=== PATIENT | female | born 1960 | race Caucasian/White ===

== ENCOUNTER 2016-12-18 20:12 | Inpatient (IN) | payer MEDICAID, OTHER ==
[~2016-12-18] VITALS: Ht 152.4 cm; Wt 93.0 kg
[~2016-12-18 20:12] MED LIST: HYDR-3672 PO; NIFE30TA43 PO
[2016-12-18 20:17] VITALS: Ht 152.4 cm; Wt 93.0 kg
[2016-12-18] MEDS ORDERED: LISI1TAB8 PO (22:07)
[2016-12-18] MEDS ORDERED: hydrALAzine 20 MG INJ IV ONE (22:30)
[2016-12-18 22:33] LABS: ADD SCAN DIFF NO
[2016-12-18 22:37] LABS: BASOPHILS % 0.5 % (0.0-2.0); EOSINOPHILS # 0.1 10^3/ul (0.0-0.5); EOSINOPHILS % 1.6 % (0.0-7.0); HEMATOCRIT 28.2 % (37.0-47.0); HEMOGLOBIN 10.3 g/dl (12.0-16.0); LYMPHOCYTES # 1.4 10^3/ul (0.8-2.9); LYMPHOCYTES % 16.5 % (15.0-51.0); MEAN CORPUSCULAR HGB CONC 36.5 g/dl (32.0-37.0); MEAN CORPUSCULAR VOLUME 82.2 fl (82.0-101.0); MEAN PLATELET VOLUME 9.1 fl (7.4-10.4); MONOCYTE # 0.7 10^3/ul (0.3-0.9); MONOCYTES % 8.5 % (0.0-11.0); NEUTROPHIL # 5.9 10^3/ul (1.6-7.5); NEUTROPHILS % 72.5 % (39.0-77.0); PLATELET COUNT 447 10^3/UL (140-415); RED BLOOD COUNT 3.43 10^6/ul (4.20-5.40); RED CELL DISTRIBUTION WIDTH 11.2 % (11.5-14.5); WHITE BLOOD COUNT 8.2 10^3/ul (4.8-10.8)
[2016-12-18 22:42] LABS: ADD UMIC YES; URINE BILIRUBIN (Dip) NEGATIVE (NEGATIVE); URINE BLOOD (Dip) TRACE (NEGATIVE); URINE COLOR LT. YELLOW (YELLOW); URINE GLUCOSE (Dip) NEGATIVE (NEGATIVE); URINE KETONES (Dip) NEGATIVE (NEGATIVE); URINE LEUKOCYTE ESTERASE (Dip) TRACE (NEGATIVE); URINE NITRITE (Dip) NEGATIVE (NEGATIVE); URINE TOTAL PROTEIN (Dip) 2+ (NEGATIVE); URINE UROBILINOGEN (Dip) 0.2 E.U./dL (0.1-1.0)
[2016-12-18 22:49] LABS: ALBUMIN 4.7 g/dl (3.3-4.9); INR 0.82; PROTIME 11.3 Sec (12.2-14.2); PT RATIO 0.9
[2016-12-18 22:50] LABS: POTASSIUM 3.8 mmol/L (3.5-5.1)
[2016-12-18 22:52] LABS: ALBUMIN/GLOBULIN RATIO 1.17; BILIRUBIN,INDIRECT 0.2 mg/dl (0-1.1); BILIRUBIN,TOTAL 0.2 mg/dl (0.2-1.3); CREATININE 1.43 mg/dl (0.44-1.00); TOTAL PROTEIN 8.7 g/dl (6.1-8.1)
[2016-12-18 22:53] LABS: CALCIUM 9.1 mg/dl (8.4-10.2)
[2016-12-18 22:58] LABS: SQUAMOUS EPITHELIAL CELL,UR FEW; URINE RBCS 0-2 /HPF (0)
[2016-12-18 23:00] LABS: CK-MB 2.73 ng/ml (0.0-2.4)
--- NOTE | 2016-12-18 23:02 | RADRPT ---
PROCEDURE: XR Chest. CLINICAL INDICATION: Chest pain. TECHNIQUE: AP view of the chest was obtained. COMPARISON: 03/04/2016, 02/06/2015 FINDINGS: The cardiomediastinal silhouette is within normal limits. The lungs are clear. No signs of pleural f luid or pneumothorax are seen. The osseous structures and soft tissues are unremarkable. IMPRESSION: 1. No evidence for active cardiopulmonary disease. RPTAT: HGAS .Hung Willis MD, MD Date Time Electronically viewed and signed by .Hung Willis MD, MD on 12/18/2016 23:02 .S/
[2016-12-18 23:04] LABS: TROPONIN-I 0.017 ng/ml (0.00-0.12)
[2016-12-18] MEDS ORDERED: ASPIRIN 81 MG TAB PO ONE (23:30)
[2016-12-18] MEDS ORDERED: SOD CHLORIDE 0.9% 1,000 ML IV ONE (23:30)
[2016-12-18] MEDS ORDERED: morphine 4 MG/ML VIAL IV ONE (23:33)
[2016-12-19] VITALS (20 sets, daily range): BP systolic 128–202; BP diastolic 61–93; PULSE 67–108; RESP 13–23; TEMP 98.7
[2016-12-19] MEDS ORDERED: ONDANSETRON 4 MG INJ IV PRN (03:30)
[2016-12-19] MEDS ORDERED: ALBUTEROL/IPRATROPIUM (NEB) 3 ML AMP NEB PRN (03:30)
--- NOTE | 2016-12-19 03:46 | ERA ---
ER Documentation Chief Complaint Date/Time DATE: 12/19/16 TIME: 03:35 Chief Complaint hypertension HPI This is a 56-year-old female who was initially checked for hypertension patient says her blood sugars is running high over the past 2-3 days. She says that she is compliant with her blood pressure medication. She denies any fevers chills nausea vomiting chest pain. Denies any other current issues. ROS All systems reviewed and are negative except as per history of present illness. Medications Home Meds Reported Medications Lisinopril/Hydrochlorothiazide (Lisinopril-Hctz 20-25 mg Tab) 1 Each Tablet, 1 EACH PO DAILY, TAB 12/18/16 Discontinued Reported Medications Nifedipine* (Adalat CC*) 30 Mg Tablet.sa, 30 MG PO BID, #60 TAB.SA 03/04/16 Discontinued Scripts Hydralazine Hcl* (Hydralazine Hcl*) 50 Mg Tab, 50 MG PO Q6, #120 TAB Prov:ISIDORO WILLETTYulissa 03/04/16 Allergies Allergies: Coded Allergies: No Known Allergy (Unverified , 12/18/16) PMhx/Soc Medical and Surgical Hx: pt denies Surgical Hx History of Surgery: No Hx Miscellaneous Medical Probl: Yes (htn) Hx Alcohol Use: Yes Hx Substance Use: No Hx Tobacco Use: No Smoking Status: Never smoker Physical Exam Vitals Vital Signs Date Time Temp Pulse Resp B/P Pulse Ox O2 Delivery O2 Flow Rate FiO2 12/18/16 23:45 98.2 96 20 130/75 100 Room Air 12/18/16 22:30 98.2 84 20 173/72 100 Room Air 12/18/16 21:30 98.2 90 20 216/181 100 Room Air 12/18/16 20:17 98.2 93 20 255/119 100 Physical Exam Const: [] Head: Atraumatic Eyes: Normal Conjunctiva ENT: Normal External Ears, Nose and Mouth. Neck: Full range of motion..~ No meningismus. Resp: Clear to auscultation bilaterally Cardio: Regular rate and rhythm, no murmurs Abd: Soft, non tender, non distended. Normal bowel sounds Skin: No petechiae or rashes Back: No midline or flank tenderness Ext: No cyanosis, or edema Neur: Awake and alert Psych: Normal Mood and Affect Result Diagram: 12/18/16213912/18/162139 Results 24 hrs Laboratory Tests Test 12/18/16 21:40 12/18/16 22:05 White Blood Count 8.210^3/ul Red Blood Count 3.4310^6/ul Hemoglobin 10.3g/dl Hematocrit 28.2% Mean Corpuscular Volume 82.2fl Mean Corpuscular Hemoglobin 30.0pg Mean Corpuscular Hemoglobin Concent 36.5g/dl Red Cell Distribution Width 11.2% Platelet Count 54603^3/UL Mean Platelet Volume 9.1fl Neutrophils % 72.5% Lymphocytes % 16.5% Monocytes % 8.5% Eosinophils % 1.6% Basophils % 0.5% Nucleated Red Blood Cells % 0.0/100WBC Neutrophils # 5.910^3/ul Lymphocytes # 1.410^3/ul Monocytes # 0.710^3/ul Eosinophils # 0.110^3/ul Basophils # 0.010^3/ul Nucleated Red Blood Cells # 0.010^3/ul Prothrombin Time 11.3Sec Prothrombin Time Ratio 0.9 INR International Normalized Ratio 0.82 Activated Partial Thromboplast Time 29.0Sec Sodium Level 114mmol/L Potassium Level 3.8mmol/L Chloride Level 75mmol/L Carbon Dioxide Level 24mmol/L Anion Gap 19 Blood Urea Nitrogen 28mg/dl Creatinine 1.43mg/dl Glucose Level 97mg/dl Calcium Level 9.1mg/dl Total Bilirubin 0.2mg/dl Direct Bilirubin 0.00mg/dl Indirect Bilirubin 0.2mg/dl Aspartate Amino Transf (AST/SGOT) 33IU/L Alanine Aminotransferase (ALT/SGPT) 29IU/L Alkaline Phosphatase 130IU/L Creatine Kinase 178IU/L Creatine Kinase Index 1.5 Creatinine Kinase MB (Mass) 2.73ng/ml Troponin I 0.017ng/ml B-Type Natriuretic Peptide 1440PG/ML Total Protein 8.7g/dl Albumin 4.7g/dl Globulin 4.00g/dl Albumin/Globulin Ratio 1.17 Urine Color LT. YELLOW Urine Clarity CLEAR Urine pH 7.5 Urine Specific [place] 1.010 Urine Ketones NEGATIVE Urine Nitrite NEGATIVE Urine Bilirubin NEGATIVE Urine Urobilinogen 0.2 E.U./dL Urine Leukocyte Esterase TRACE Urine Microscopic RBC 0-2/HPF Urine Microscopic WBC 2-5/HPF Urine Squamous Epithelial Cells FEW Urine Hemoglobin TRACE Urine Glucose NEGATIVE% Urine Total Protein 2+ Current Medications Medications (Trade) Dose Ordered Sig/Jaquan Route PRN Reason Start Time Stop Time Status Last Admin Dose Admin Hydralazine HCl 20 mg 20 mg ONCE ONCE IV 12/18/16 22:30 12/18/16 22:31 DC 12/18/16 22:25 Sodium Chloride (NS) 1,000 ml @ 1,000 mls/hr Q1H ONCE IV 12/18/16 23:30 12/19/16 00:29 DC 12/18/16 23:45 Aspirin (Aspirin) 324 mg ONCE ONCE PO 12/18/16 23:30 12/18/16 23:33 DC 12/18/16 23:44 Morphine Sulfate 4 mg 4 mg ONCE ONCE IV 12/18/16 23:33 12/18/16 23:34 DC Sodium Chloride (NS) 1,000 ml @ 100 mls/hr Q10H IV 12/19/16 03:26 UNV Ondansetron HCl (Zofran Inj) 4 mg Q6H PRN IV NAUSEA AND/OR VOMITING 12/19/16 03:30 UNV Albuterol/ Ipratropium (Duoneb) 3 ml Q2H RESP THERAPY PRN NEB SHORTNESS OF BREATH 12/19/16 03:30 UNV Acetaminophen (Tylenol Liquid) 650 mg Q6H PRN PO PAIN LEVEL 1-3 OR FEVER 12/19/16 03:30 UNV Lorazepam (Ativan) 1 mg Q2H PRN IV ANXIETY 12/19/16 03:30 UNV Famotidine (Pepcid) 20 mg Q12 PO 12/19/16 09:00 UNV Hydralazine HCl (Apresoline) 10 mg Q4 PRN IV SBP > 160 12/19/16 03:30 UNV Metoprolol Tartrate (Lopressor) 25 mg Q12 PO 12/19/16 09:00 UNV Procedures/MDM EKG: Rate/Rhythm: Normal Sinus Rhythm QRS, ST, T-waves: No changes consistent w/ acute ischemia Impression: No evidence of ischemia or arrhythmia Chest X-ray 1V Interpreted by me: Soft Tissue: No acute abnormalities Bones: No acute abnormalities Mediastinum/Cardiac Silhouette/Lungs: No acute abnormalities Critical Care: Time: 45 minutes Treatments/Evaluations: Close monitoring and treatment of unstable vital signs, cardiorespiratory, and neurologic status, while maintaining tight balance of fluid, respiratory, and cardiac interventions. Medical decision making: This is a 56-year-old female came in for hypertension initially. Blood pressure has been treated. However, the patient has very severe electrolyte disturbances. Normal saline is being repleted here in the emergency department with normal saline fluid bolus along with maintenance fluid. The discussion was had with the hospitalist with regards to possible hypertonic saline implantation, however the patient has no neurological deficit at this time I feel the risks outweigh the benefits. Patient will be admitted to the intensive care unit for close monitoring of electrolytes. Departure Diagnosis: Primary Impression: Hypertensive crisis Additional Impression: Hyponatremia Condition: Critical ISIDORO WILLETT December 19, 2016 03:46
[2016-12-19] MEDS: SOD CHLORIDE 0.9% 1,000 ML IV SCH ×3 (03:53→19:58)
[2016-12-19 03:56] LABS: ADD SCAN DIFF NO
[2016-12-19 03:58] LABS: BASOPHILS % 0.3 % (0.0-2.0); EOSINOPHILS # 0.1 10^3/ul (0.0-0.5); EOSINOPHILS % 0.9 % (0.0-7.0); HEMOGLOBIN 8.9 g/dl (12.0-16.0); LYMPHOCYTES % 12.7 % (15.0-51.0); MEAN CORPUSCULAR HEMOGLOBIN 30.2 pg (29.0-33.0); MEAN CORPUSCULAR HGB CONC 37.1 g/dl (32.0-37.0); MEAN CORPUSCULAR VOLUME 81.4 fl (82.0-101.0); MEAN PLATELET VOLUME 8.1 fl (7.4-10.4); MONOCYTE # 0.6 10^3/ul (0.3-0.9); MONOCYTES % 7.6 % (0.0-11.0); NEUTROPHILS % 78.2 % (39.0-77.0); PLATELET COUNT 357 10^3/UL (140-415); RED BLOOD COUNT 2.95 10^6/ul (4.20-5.40); RED CELL DISTRIBUTION WIDTH 11.2 % (11.5-14.5); WHITE BLOOD COUNT 7.6 10^3/ul (4.8-10.8)
[2016-12-19 04:11] LABS: ALBUMIN 3.7 g/dl (3.3-4.9); POTASSIUM 3.3 mmol/L (3.5-5.1)
[2016-12-19 04:13] LABS: BILIRUBIN,INDIRECT 0.3 mg/dl (0-1.1); BILIRUBIN,TOTAL 0.3 mg/dl (0.2-1.3); CREATININE 1.24 mg/dl (0.44-1.00)
[2016-12-19 04:14] LABS: ALBUMIN/GLOBULIN RATIO 1.08; CALCIUM 8.4 mg/dl (8.4-10.2); MAGNESIUM 1.4 mg/dl (1.7-2.5); TOTAL PROTEIN 7.1 g/dl (6.1-8.1)
[2016-12-19 04:24] LABS: POTASSIUM,URINE RANDOM 12.7 mmol/L (25-125)
[2016-12-19] MEDS: METOPROLOL 25 MG TAB PO SCH ×2 (08:17→21:12)
[2016-12-19] MEDS: FAMOTIDINE 20 MG TAB PO SCH (08:17)
[2016-12-19] MEDS ORDERED: POTASSIUM CHLORIDE (SR) 20 MEQ TAB PO STA (08:47)
[2016-12-19] MEDS: hydrALAzine 20 MG INJ IV PRN ×3 (09:19→19:58)
[2016-12-19 10:26] LABS: THYROID STIMULATING HORMONE 1.44 MIU/L (0.465-4.680)
--- NOTE | 2016-12-19 10:35 | CONS ---
Date/Time of Note Date/Time of Note DATE: 12/19/16 TIME: 10:35 Assessment/Plan Assessment/Plan Additional Assessment/Plan 1. Severe Hyponatremia 2. Hypertensive Urgency 3. Generalized weakness 4. CKD 5. Anemia, likely 2/2 chronic disease and CKD As patient is asymptomatic no acute indication for Hypertonic saline Will order Urine studies, Osm NA, Cr Check TSH and cortisol level Cont Gently NS at this time as patient is improving with NS Recommend Free H20 Restricted Diet for now Repeat Chemistry in 4 hour then BID HTN better controlled, cont current Rx and plan. Thank you for the opportunity to participate in the care of Ms Raza Further recommendations to follow once studies reviewed. Consultation Date/Type/Reason Admit Date/Time December 19, 2016 at 03:32 Date of Consultation: December 19, 2016 Type of Consultation: Renal Reason for Consultation Hyponatremia Referring Provider: BRITTNI ESCOTO Hx of Present Illness 56 yo Female with history of HTN and CKD who had presented to ER at [facility] with CC of generalized weakness and shortness of breath for last 3 days. Denies CP, Fever Chills N/V/D, no hematuria or dysuria. NO history of hyponatremia in the past. Pt was found to have severe HTN requiring IV Rx and admitted to ICU, BP better controlled and above symptoms improved. Incidentally found to have have Na of 114 which has improved to 117. No HERMAN, AMS reported, NO seizure activity. Nephrology consulted for Hyponatremia . as above Constitutional: No requiring O2 Past Medical History Medical History: hypertension, renal disease Past Surgical History Past Surgical Hx: other Social History Alcohol Use: none Smoking Status: Never smoker Drug Use: none Exam/Review of Systems Vital Signs Vitals Vital Signs Date Time Temp Pulse Resp B/P Pulse Ox O2 Delivery O2 Flow Rate FiO2 12/19/16 06:46 98.7 77 14 169/83 99 Room Air Exam Constitutional: No distress Psych: No anxiety Head: atraumatic, normocephalic Eyes: EOMI, PERRL, nl conjunctiva Neck: No jvd Respiratory: clear to auscultation, No crackles/rales Cardiovascular: regular rate and rhythm, No edema Gastrointestinal: non-tender, soft, No distended, No rebound or guarding Neurological: [employer] II-XII intact, nl mental status, nl speech, nl strength, No confused, No focal weakness, No lethargic Results Result Diagram: 12/19/16 0350 12/19/16 0350 Results 24 hrs Laboratory Tests Test 12/18/16 21:40 12/18/16 22:05 12/19/16 03:50 White Blood Count 8.2 # 7.6 Red Blood Count 3.43 L 2.95 L Hemoglobin 10.3 L 8.9 L Hematocrit 28.2 #L 24.0 L Mean Corpuscular Volume 82.2 81.4 L Mean Corpuscular Hemoglobin 30.0 30.2 Mean Corpuscular Hemoglobin Concent 36.5 37.1 H Red Cell Distribution Width 11.2 L 11.2 L Platelet Count 447 H 357 # Mean Platelet Volume 9.1 8.1 Neutrophils % 72.5 78.2 H Lymphocytes % 16.5 12.7 L Monocytes % 8.5 7.6 Eosinophils % 1.6 0.9 Basophils % 0.5 0.3 Nucleated Red Blood Cells % 0.0 0.0 Neutrophils # 5.9 6.0 Lymphocytes # 1.4 1.0 Monocytes # 0.7 0.6 Eosinophils # 0.1 0.1 Basophils # 0.0 0.0 Nucleated Red Blood Cells # 0.0 0.0 Prothrombin Time 11.3 L Prothrombin Time Ratio 0.9 INR International Normalized Ratio 0.82 Activated Partial Thromboplast Time 29.0 Sodium Level 114 *L 117 *L Potassium Level 3.8 3.3 L Chloride Level 75 L 84 L Carbon Dioxide Level 24 23 Anion Gap 19 H 13 Blood Urea Nitrogen 28 H 26 H Creatinine 1.43 H 1.24 H Glucose Level 97 117 Calcium Level 9.1 8.4 Total Bilirubin 0.2 0.3 Direct Bilirubin 0.00 0.00 Indirect Bilirubin 0.2 0.3 Aspartate Amino Transf (AST/SGOT) 33 25 Alanine Aminotransferase (ALT/SGPT) 29 20 Alkaline Phosphatase 130 H 97 Creatine Kinase 178 Creatine Kinase Index 1.5 Creatinine Kinase MB (Mass) 2.73 H Troponin I 0.017 B-Type Natriuretic Peptide 1440 H Total Protein 8.7 H 7.1 # Albumin 4.7 3.7 # Globulin 4.00 H 3.40 H Albumin/Globulin Ratio 1.17 1.08 Urine Color LT. YELLOW Urine Clarity CLEAR Urine pH 7.5 Urine Specific [place] 1.010 Urine Ketones NEGATIVE Urine Nitrite NEGATIVE Urine Bilirubin NEGATIVE Urine Urobilinogen 0.2 E.U./dL Urine Leukocyte Esterase TRACE H Urine Microscopic RBC 0-2 Urine Microscopic WBC 2-5 Urine Squamous Epithelial Cells FEW Urine Hemoglobin TRACE Urine Random Sodium 27 L Urine Random Potassium 12.7 L Urine Glucose NEGATIVE Urine Total Protein 2+ H Magnesium Level 1.4 L Thyroid Stimulating Hormone (TSH) 1.440 Random Cortisol 9.2 Medications Medications Current Medications Sodium Chloride (NS) 1,000 ml @ 100 mls/hr Q10H IV Last administered on 03:53; Admin Dose 100 MLS/HR; Start 12/19/16 at 03:26 Ondansetron HCl (Zofran Inj) 4 mg Q6H PRN IV NAUSEA AND/OR VOMITING; Start 05/28 at 03:30 Acetaminophen (Tylenol Liquid) 650 mg Q6H PRN PO PAIN LEVEL 1-3 OR FEVER; Start 12/19/16 at 03:30 Lorazepam (Ativan) 1 mg Q2H PRN IV ANXIETY; Start 12/19/16 at 03:30 Famotidine (Pepcid) 20 mg DAILY PO Last administered on 12/19/16 08:17; Admin Dose 20 MG; Start 12/19/16 at 09:00 Hydralazine HCl (Apresoline) 10 mg Q4H PRN IV SBP > 160 Last administered on 09:19; Admin Dose 10 MG; Start 12/19/16 at 03:30 Metoprolol Tartrate (Lopressor) 25 mg Q12 PO Last administered on 12/19/16 08: 17; Admin Dose 25 MG; Start 12/19/16 at 09:00 Procedures Procedures PROCEDURE: XR Chest. CLINICAL INDICATION: Chest pain. TECHNIQUE: AP view of the chest was obtained. COMPARISON: 03/04/2016, 02/06/2015 FINDINGS: The cardiomediastinal silhouette is within normal limits. The lungs are clear. No signs of pleural fluid or pneumothorax are seen. The osseous structures and soft tissues are unremarkable. IMPRESSION: 1. No evidence for active cardiopulmonary disease. RPTAT: HGAS .Hung Willis MD, MD Date Time Electronically viewed and signed by .Hung Willis MD, on 12/18/2016 23: 02 FELICIA CABALLERO MD December 19, 2016 10:35
--- NOTE | 2016-12-19 11:51 | HP ---
Date/Time of Note Date/Time of Note DATE: 12/19/16 TIME: 11:41 Assessment/Plan VTE Prophylaxis VTE Prophylaxis Intervention: SCD's Lines/Catheters [facility] Saline Lock Urinary Cath still in place: No Assessment/Plan Assessment/Plan 1. Severe Hyponatremia - NS IVF - will check urine electrolytes - Nephrology consult 2. Hypertensive Urgency - s/p IV hydralazine in ER with significant drop in BP - Monitor closely and adjust meds as needed 3. Generalized weakness: likely 2/2 hyponatremia - see above 4. CKD - avoid nephrotoxins - nephrology to follow 5. Anemia, likely 2/2 chronic disease and CKD - check iron panel and ferritin - transfuse as needed HPI/ROS Admit Date/Time Admit Date/Time December 19, 2016 at 03:32 Hx of Present Illness This is a 56 yo male with history of HTN and CKD who presented to ER c/o generalized weakness and shortness of breath for past few days. Denied focal weakness/numbness, headache, CP, fever/chills, nausea/vomiting or diarrhea. In ER, her BP was 255/119 with HR of 93. Lab showed a Na of 114, cl 75, BUN 28 and cr 1.43. . ROS Psychological: No anxiety PMH/Family/Social Past Medical History Medical History: hypertension, renal disease Social History Alcohol Use: none Smoking Status: Never smoker Drug Use: none Exam/Review of Systems Vital Signs Vitals Vital Signs Date Time Temp Pulse Resp B/P Pulse Ox O2 Delivery O2 Flow Rate FiO2 12/19/16 08:00 73 12/19/16 06:46 98.7 14 169/83 99 Room Air Exam Constitutional: other (mild distress. appears weak) Head: atraumatic, normocephalic Eyes: EOMI, PERRL Respiratory: clear to auscultation, normal air movement Cardiovascular: nl pulses, regular rate and rhythm Gastrointestinal: non-tender, soft Extremities: normal pulses Labs Result Diagram: 12/19/16 03512/19/16 035 Medications Medications Current Medications Sodium Chloride (NS) 1,000 ml @ 100 mls/hr Q10H IV Last administered on t 03:53; Admin Dose 100 MLS/HR; Start 12/19/16 at 03:26 Ondansetron HCl (Zofran Inj) 4 mg Q6H PRN IV NAUSEA AND/OR VOMITING; Start 05/28 at 03:30 Acetaminophen (Tylenol Liquid) 650 mg Q6H PRN PO PAIN LEVEL 1-3 OR FEVER; Start 12/19/16 at 03:30 Lorazepam (Ativan) 1 mg Q2H PRN IV ANXIETY; Start 12/19/16 at 03:30 Famotidine (Pepcid) 20 mg DAILY PO Last administered on 12/19/16 08:17; Admin Dose 20 MG; Start 12/19/16 at 09:00 Hydralazine HCl (Apresoline) 10 mg Q4H PRN IV SBP > 160 Last administered on 09:19; Admin Dose 10 MG; Start 12/19/16 at 03:30 Metoprolol Tartrate (Lopressor) 25 mg Q12 PO Last administered on 12/19/16 08: 17; Admin Dose 25 MG; Start 12/19/16 at 09:00 ISIDORO LANDRUM MD December 19, 2016 11:51
[2016-12-19] MEDS ORDERED: hydrALAzine 20 MG INJ IV ONE (23:30)
[2016-12-19] MEDS ORDERED: METOPROLOL 25 MG TAB PO ONE (23:30)
[2016-12-20] VITALS (24 sets, daily range): BP systolic 103–189; BP diastolic 55–90; PULSE 63–103; RESP 14–28
[2016-12-20] MEDS: LORAZEPAM 2 MG INJ IV PRN (00:06)
[2016-12-20] MEDS: hydrALAzine 20 MG INJ IV PRN ×2 (04:58→15:27)
[2016-12-20 06:13] LABS: ADD SCAN DIFF NO
[2016-12-20 06:17] LABS: BASOPHIL # 0.1 10^3/ul (0.0-0.1); BASOPHILS % 0.8 % (0.0-2.0); EOSINOPHILS # 0.1 10^3/ul (0.0-0.5); EOSINOPHILS % 1.3 % (0.0-7.0); HEMATOCRIT 25.2 % (37.0-47.0); LYMPHOCYTES # 0.9 10^3/ul (0.8-2.9); LYMPHOCYTES % 14.8 % (15.0-51.0); MEAN CORPUSCULAR HEMOGLOBIN 30.3 pg (29.0-33.0); MEAN CORPUSCULAR HGB CONC 35.7 g/dl (32.0-37.0); MEAN CORPUSCULAR VOLUME 84.8 fl (82.0-101.0); MEAN PLATELET VOLUME 9.2 fl (7.4-10.4); MONOCYTE # 0.7 10^3/ul (0.3-0.9); MONOCYTES % 12.1 % (0.0-11.0); NEUTROPHIL # 4.2 10^3/ul (1.6-7.5); NEUTROPHILS % 70.7 % (39.0-77.0); PLATELET COUNT 407 10^3/UL (140-415); RED BLOOD COUNT 2.97 10^6/ul (4.20-5.40); RED CELL DISTRIBUTION WIDTH 11.9 % (11.5-14.5)
[2016-12-20 06:47] LABS: IRON 90 ug/dl (35-150)
[2016-12-20 06:56] LABS: TOTAL IRON BINDING CAPACITY 243 ug/dl (241-421)
[2016-12-20 07:06] LABS: ALBUMIN 3.7 g/dl (3.3-4.9); ALBUMIN/GLOBULIN RATIO 1.08; BILIRUBIN,INDIRECT 0.3 mg/dl (0-1.1); BILIRUBIN,TOTAL 0.3 mg/dl (0.2-1.3); CALCIUM 8.9 mg/dl (8.4-10.2); CREATININE 1.38 mg/dl (0.44-1.00); POTASSIUM 4.1 mmol/L (3.5-5.1); TOTAL PROTEIN 7.1 g/dl (6.1-8.1)
[2016-12-20] MEDS: FAMOTIDINE 20 MG TAB PO SCH (08:47)
[2016-12-20] MEDS: METOPROLOL 50 MG TAB PO SCH ×2 (08:47→20:30)
[2016-12-20] MEDS: CEFTRIAXONE 1 GM/50 ML (PMX) 50 ML IVPB SCH (11:43)
[2016-12-20] MEDS ORDERED: MAGNESIUM SULFATE 2 GM/50 ML 50 ML IVPB ONE ×2 (12:00→22:30)
--- NOTE | 2016-12-20 12:05 | PN ---
DATE: 12/20/2016 SUBJECTIVE: No acute events overnight. Seen by renal team. The patient is on normal saline IV flu ids at a lower rate. OBJECTIVE VITAL SIGNS: Stable. GENERAL: Patient sitting up in bed, answering questions appropriately. No acute distress. HEENT: Pupils equal, round, react to light. Extraocular muscles intact. NECK: Supple, no thyromegaly. LUNGS: Clear to auscultation bilaterally. CARDIOVASCULAR: S1, S2 heard. No rubs or gallops. ABDOMEN: Soft, nontender, nondistended. Normal bowel sounds. No rebound or guarding. MUSCULOSKELETAL: No lower extremity edema bilaterally. NEUROLOGIC: No focal deficits. LABORATORY DATA: Sodium 122, potassium 4.1, chloride 94, CO2 21, BUN of 28, creatinine 1.38, glucos e 106. Mag is 1.5. Iron panel is normal. LFTs are normal. CBC is normal. ASSESSMENT AND PLAN: A 56-year-old female with history of hypertension and CKD, comes in with gener alized weakness, shortness of breath, found with severe hyponatremia and hypertensive urgency. 1. Hyponatremia, again, appreciate renal consult. Continue current IV fluids, normal saline. Sodi um is slowly correcting upward, the patient is asymptomatic. Will add salt tabs as well. Follow up the final urine electrolyte studies as well. Follow up renal recommendations. Monitor BUN and cre atinine levels, monitor sodium levels. 2. Hypertensive urgency. Blood pressure is stable. She did get IV hydralazine in the ER. Continu e to monitor for now. Continue current p.o. blood pressure medicines. 3. Generalized weakness, again secondary to #1, improving. Continue to monitor for now. Consider PT consult. 4. History of chronic kidney disease. Again avoid nephrotoxins, monitor. Follow up renal recommen dations. 5. Gastrointestinal prophylaxis, Pepcid. 6. Deep venous thrombosis prophylaxis. Consider SCDs. Critical care time spent on patient care today: 35 minutes. Dictated By: BRITTNI OLVERA Conf#: [id number] DID#: [id number]
[2016-12-20] MEDS: SODIUM CHLORIDE 1 GM TAB PO SCH ×2 (12:34→22:10)
[2016-12-20] MEDS: ACETAMINOPHEN 650MG/20.3ML CUP PO PRN (22:19)
--- NOTE | 2016-12-20 22:26 | CONS ---
Date/Time of Note Date/Time of Note DATE: 12/20/16 TIME: 22:18 Assessment/Plan Assessment/Plan Additional Assessment/Plan Gradual improvement in SNa Pt must be on fluid restriction & IV DCd If SNa still low, will have to consider use of Talveptom Cont'd Hospitalization Reason: Await lab in AM Consultation Date/Type/Reason Admit Date/Time December 19, 2016 at 03:32 Initial Consult Date 12/19/16 Type of Consultation: Renal Referring Provider: BRITTNI ESCOTO 24 HR Interval Summary Free Text/Dictation Pt is lying in bed comfortably Exam/Review of Systems Vital Signs Vitals Vital Signs Date Time Temp Pulse Resp B/P Pulse Ox O2 Delivery O2 Flow Rate FiO2 12/20/16 20:09 103 12/20/16 20:01 98.7 20 153/74 96 12/20/16 13:00 Room Air Intake and Output 12/19/16 12/19/16 12/20/16 15:00 23:00 07:00 Intake Total 1080 ml 880 ml 480 ml Output Total 650 ml 700 ml 900 ml Balance 430 ml 180 ml -420 ml Exam speaks spaish Constitutional: alert, oriented, well developed Psych: nl mood/affect, no complaints Head: atraumatic, normocephalic Eyes: EOMI, PERRL, nl conjunctiva, nl lids, nl sclera ENMT: nl external ears & nose, nl lips & teeth, nl nasal mucosa & septum Neck: non-tender, supple Respiratory: clear to auscultation, normal air movement Cardiovascular: nl pulses, regular rate and rhythm Gastrointestinal: nl liver, spleen, non-tender, soft Musculoskeletal: nl extremities to inspection, nl gait and stance Extremities: normal pulses Neurological: [employer] II-XII intact, nl mental status, nl speech, nl strength Skin: nl turgor, No rash or lesions Lymph: nl lymph nodes Results SNa remains low despite PO NaCl & IV NaCl Result Diagram: 12/20/1617 12/20/16 0517 Results 24 hrs Laboratory Tests Test 12/20/16 05:17 White Blood Count 6.0 # Red Blood Count 2.97 L Hemoglobin 9.0 L Hematocrit 25.2 L Mean Corpuscular Volume 84.8 Mean Corpuscular Hemoglobin 30.3 Mean Corpuscular Hemoglobin Concent 35.7 Red Cell Distribution Width 11.9 Platelet Count 407 Mean Platelet Volume 9.2 Neutrophils % 70.7 Lymphocytes % 14.8 L Monocytes % 12.1 H Eosinophils % 1.3 Basophils % 0.8 Nucleated Red Blood Cells % 0.0 Neutrophils # 4.2 Lymphocytes # 0.9 Monocytes # 0.7 Eosinophils # 0.1 Basophils # 0.1 Nucleated Red Blood Cells # 0.0 Sodium Level 122 L Potassium Level 4.1 Chloride Level 94 #L Carbon Dioxide Level 21 Anion Gap 11 Blood Urea Nitrogen 28 H Creatinine 1.38 H Glucose Level 106 Calcium Level 8.9 Magnesium Level 1.5 L Iron Level 90 Total Iron Binding Capacity 243 Percent Iron Saturation 37 Ferritin 103.0 Total Bilirubin 0.3 Direct Bilirubin 0.00 Indirect Bilirubin 0.3 Aspartate Amino Transf (AST/SGOT) 24 Alanine Aminotransferase (ALT/SGPT) 20 Alkaline Phosphatase 73 Total Protein 7.1 Albumin 3.7 Globulin 3.40 H Albumin/Globulin Ratio 1.08 Medications Medications Current Medications Sodium Chloride (NS) 1,000 ml @ 50 mls/hr Q20H IV Last administered on 19:58; Admin Dose 50 MLS/HR; Start 12/19/16 at 03:26 Ondansetron HCl (Zofran Inj) 4 mg Q6H PRN IV NAUSEA AND/OR VOMITING; Start 05/28 at 03:30 Acetaminophen (Tylenol Liquid) 650 mg Q6H PRN PO PAIN LEVEL 1-3 OR FEVER; Start 12/19/16 at 03:30 Lorazepam (Ativan) 1 mg Q2H PRN IV ANXIETY Last administered on 12/20/16 00:06 ; Admin Dose 1 MG; Start 12/19/16 at 03:30 Famotidine (Pepcid) 20 mg DAILY PO Last administered on 12/20/16 08:47; Admin Dose 20 MG; Start 12/19/16 at 09:00 Hydralazine HCl (Apresoline) 10 mg Q4H PRN IV SBP > 160 Last administered on 15:27; Admin Dose 10 MG; Start 12/19/16 at 03:30 Metoprolol Tartrate (Lopressor) 50 mg BID PO Last administered on 12/20/16 20: 30; Admin Dose 50 MG; Start 12/20/16 at 09:00 Sodium Chloride 1 gm 1 gm TID PO Last administered on 12/20/16 12:34; Admin Dose 1 GM; Start 12/20/16 at 13:00 Ceftriaxone Sodium (Rocephin) 50 ml @ 100 mls/hr Q24H IVPB Last administered on 12/20/16 11:43; Admin Dose 100 MLS/HR; Start 12/20/16 at 12:00 Clonidine (Catapres) 0.1 mg Q6H PRN PO ELEVATED BLOOD PRESSURE; Start 12/20/16 at 18:30 Magnesium Hydroxide (Milk Of Mag) 30 ml DAILY PRN PO CONSTIPATION; Start at 21:00 LARS SANCHEZ MD December 20, 2016 22:26
[2016-12-21] VITALS (19 sets, daily range): BP systolic 142–211; BP diastolic 65–102; PULSE 74–85; RESP 18–22
[2016-12-21] MEDS: hydrALAzine 20 MG INJ IV PRN ×3 (01:03→15:44)
[2016-12-21] MEDS: METOPROLOL 50 MG TAB PO SCH ×2 (08:57→20:56)
[2016-12-21] MEDS: SODIUM CHLORIDE 1 GM TAB PO SCH ×3 (08:57→20:53)
[2016-12-21] MEDS: FAMOTIDINE 20 MG TAB PO SCH (08:58)
[2016-12-21] MEDS: ACETAMINOPHEN 650MG/20.3ML CUP PO PRN (09:09)
[2016-12-21 11:17] LABS: ADD SCAN DIFF NO
[2016-12-21 11:25] LABS: BASOPHIL # 0.1 10^3/ul (0.0-0.1); BASOPHILS % 0.5 % (0.0-2.0); EOSINOPHILS # 0.1 10^3/ul (0.0-0.5); EOSINOPHILS % 0.9 % (0.0-7.0); HEMATOCRIT 22.5 % (37.0-47.0); HEMOGLOBIN 7.8 g/dl (12.0-16.0); LYMPHOCYTES # 0.8 10^3/ul (0.8-2.9); LYMPHOCYTES % 7.3 % (15.0-51.0); MEAN CORPUSCULAR HEMOGLOBIN 29.9 pg (29.0-33.0); MEAN CORPUSCULAR HGB CONC 34.7 g/dl (32.0-37.0); MEAN CORPUSCULAR VOLUME 86.2 fl (82.0-101.0); MEAN PLATELET VOLUME 9.2 fl (7.4-10.4); MONOCYTE # 0.9 10^3/ul (0.3-0.9); MONOCYTES % 8.8 % (0.0-11.0); NEUTROPHIL # 8.5 10^3/ul (1.6-7.5); NEUTROPHILS % 82.1 % (39.0-77.0); PLATELET COUNT 347 10^3/UL (140-415); RED BLOOD COUNT 2.61 10^6/ul (4.20-5.40); RED CELL DISTRIBUTION WIDTH 12.2 % (11.5-14.5); WHITE BLOOD COUNT 10.4 10^3/ul (4.8-10.8)
[2016-12-21 11:47] LABS: POTASSIUM 3.6 mmol/L (3.5-5.1)
[2016-12-21 11:49] LABS: CREATININE 1.49 mg/dl (0.44-1.00)
[2016-12-21 11:50] LABS: CALCIUM 8.8 mg/dl (8.4-10.2); MAGNESIUM 1.9 mg/dl (1.7-2.5); PHOSPHORUS 4.8 mg/dl (2.5-4.9)
[2016-12-21] MEDS: CEFTRIAXONE 1 GM/50 ML (PMX) 50 ML IVPB SCH (13:21)
--- NOTE | 2016-12-21 14:38 | PN ---
Date/Time of Note Date/Time of Note DATE: 12/21/16 TIME: 14:36 Assessment/Plan VTE Prophylaxis VTE Prophylaxis Intervention: SCD's Lines/Catheters IV Catheter Type (from [facility]): Peripheral IV Urinary Cath still in place: No Assessment/Plan Chief Complaint/Hosp Course ASSESSMENT AND PLAN: A 56-year-old female with history of hypertension and CKD , comes in with generalized weakness, shortness of breath, found with severe hyponatremia and hypertensive urgency. 1. Hyponatremia, again, appreciate renal consult - Na+ improving (120 -> 122 - > -> 127). , Sodium is slowly correcting upward, the patient is asymptomatic. - Continue salt tabs - Follow up the final urine electrolyte studies as well. - Follow up renal recommendations. - Monitor BUN and creatinine levels, monitor sodium levels. 2. Hypertensive urgency. Blood pressure is stable. She did get IV hydralazine in the ER. - Continue to monitor for now. - Continue current p.o. blood pressure medicines. 3. Generalized weakness, again secondary to #1, improving. Continue to monitor for now. Consider PT consult. 4. History of chronic kidney disease. Again avoid nephrotoxins, monitor. Follow up renal recommendations. 5. Gastrointestinal prophylaxis, Pepcid. 6. Deep venous thrombosis prophylaxis - SCDs. Problems: Subjective 24 Hr Interval Summary Free Text/Dictation Pt out of ICU now, no acute events overnight. Exam/Review of Systems Vital Signs Vitals Vital Signs Date Time Temp Pulse Resp B/P Pulse Ox O2 Delivery O2 Flow Rate FiO2 12/21/16 12:09 98.1 80 18 147/65 100 12/20/16 13:00 Room Air Intake and Output 12/20/16 12/20/16 12/21/16 15:00 23:00 07:00 Intake Total 820 ml 850 ml 50 ml Output Total 300 ml Balance 520 ml 850 ml 50 ml Exam GENERAL: Patient sitting up in bed, answering questions appropriately. No acute distress. HEENT: Pupils equal, round, react to light. Extraocular muscles intact. NECK: Supple, no thyromegaly. LUNGS: Clear to auscultation bilaterally. CARDIOVASCULAR: S1, S2 heard. No rubs or gallops. ABDOMEN: Soft, nontender, nondistended. Normal bowel sounds. No rebound or guarding. MUSCULOSKELETAL: No lower extremity edema bilaterally. NEUROLOGIC: No focal deficits. Results Result Diagram: 12/21/16 1026 12/21/16 1026 Results 24 hrs Laboratory Tests Test 12/21/16 10:26 White Blood Count 10.4 # Red Blood Count 2.61 L Hemoglobin 7.8 L Hematocrit 22.5 L Mean Corpuscular Volume 86.2 Mean Corpuscular Hemoglobin 29.9 Mean Corpuscular Hemoglobin Concent 34.7 Red Cell Distribution Width 12.2 Platelet Count 347 Mean Platelet Volume 9.2 Neutrophils % 82.1 H Lymphocytes % 7.3 L Monocytes % 8.8 Eosinophils % 0.9 Basophils % 0.5 Nucleated Red Blood Cells % 0.0 Neutrophils # 8.5 H Lymphocytes # 0.8 Monocytes # 0.9 Eosinophils # 0.1 Basophils # 0.1 Nucleated Red Blood Cells # 0.0 Sodium Level 127 L Potassium Level 3.6 Chloride Level 95 L Carbon Dioxide Level 20 L Anion Gap 16 Blood Urea Nitrogen 26 H Creatinine 1.49 H Glucose Level 134 Calcium Level 8.8 Phosphorus Level 4.8 Magnesium Level 1.9 Medications Medications Current Medications Ondansetron HCl (Zofran Inj) 4 mg Q6H PRN IV NAUSEA AND/OR VOMITING; Start 05/28 at 03:30 Acetaminophen (Tylenol Liquid) 650 mg Q6H PRN PO PAIN LEVEL 1-3 OR FEVER Last administered on 12/21/16 09:09; Admin Dose 650 MG; Start 12/19/16 at 03:30 Lorazepam (Ativan) 1 mg Q2H PRN IV ANXIETY Last administered on 12/20/16 00:06 ; Admin Dose 1 MG; Start 12/19/16 at 03:30 Famotidine (Pepcid) 20 mg DAILY PO Last administered on 12/21/16 08:58; Admin Dose 20 MG; Start 12/19/16 at 09:00 Hydralazine HCl (Apresoline) 10 mg Q4H PRN IV SBP > 160 Last administered on 08:58; Admin Dose 10 MG; Start 12/19/16 at 03:30 Metoprolol Tartrate (Lopressor) 50 mg BID PO Last administered on 12/21/16 08: 57; Admin Dose 50 MG; Start 12/20/16 at 09:00 Sodium Chloride 1 gm 1 gm TID PO Last administered on 12/21/16 13:21; Admin Dose 1 GM; Start 12/20/16 at 13:00 Ceftriaxone Sodium (Rocephin) 50 ml @ 100 mls/hr Q24H IVPB Last administered on 12/21/16t 13:21; Admin Dose 100 MLS/HR; Start 12/20/16 at 12:00 Clonidine (Catapres) 0.1 mg Q6H PRN PO ELEVATED BLOOD PRESSURE; Start 12/20/16 at 18:30 Magnesium Hydroxide (Milk Of Mag) 30 ml DAILY PRN PO CONSTIPATION; Start at 21:00 BRITTNI ESCOTO December 21, 2016 14:38
--- NOTE | 2016-12-21 15:55 | CONS ---
Date/Time of Note Date/Time of Note DATE: 12/21/16 TIME: 15:54 Assessment/Plan Assessment/Plan Additional Assessment/Plan 1. Severe Hyponatremia 2. Hypertensive Urgency 3. Generalized weakness 4. CKD 5. Anemia, likely 2/2 chronic disease and CKD As patient is asymptomatic no acute indication for Hypertonic saline Recommend Free H20 Restricted Diet for now HTN better controlled, cont current Rx and plan. Thank you for the opportunity to participate in the care of Ms Raza Further recommendations to follow once studies reviewed. Consultation Date/Type/Reason Admit Date/Time December 19, 2016 at 03:32 Initial Consult Date 12/19/16 Type of Consultation: Renal Referring Provider: BRITTNI ESCOTO 24 HR Interval Summary Constitutional: No requiring O2 Exam/Review of Systems Vital Signs Vitals Vital Signs Date Time Temp Pulse Resp B/P Pulse Ox O2 Delivery O2 Flow Rate FiO2 12/21/16 12:09 98.1 80 18 147/65 100 12/20/16 13:00 Room Air Intake and Output 12/20/16 12/20/16 12/21/16 15:00 23:00 07:00 Intake Total 820 ml 850 ml 50 ml Output Total 300 ml Balance 520 ml 850 ml 50 ml Exam Constitutional: No distress ENMT: mucosa pink and moist Neck: No jvd Respiratory: clear to auscultation Cardiovascular: regular rate and rhythm, No edema Gastrointestinal: soft Neurological: METAL FITTER II-XII intact, nl mental status, nl speech, nl strength, No confused, No lethargic Results Result Diagram: 12/21/16 1026 12/21/16 1026 Results 24 hrs Laboratory Tests Test 12/21/16 10:26 White Blood Count 10.4 # Red Blood Count 2.61 L Hemoglobin 7.8 L Hematocrit 22.5 L Mean Corpuscular Volume 86.2 Mean Corpuscular Hemoglobin 29.9 Mean Corpuscular Hemoglobin Concent 34.7 Red Cell Distribution Width 12.2 Platelet Count 347 Mean Platelet Volume 9.2 Neutrophils % 82.1 H Lymphocytes % 7.3 L Monocytes % 8.8 Eosinophils % 0.9 Basophils % 0.5 Nucleated Red Blood Cells % 0.0 Neutrophils # 8.5 H Lymphocytes # 0.8 Monocytes # 0.9 Eosinophils # 0.1 Basophils # 0.1 Nucleated Red Blood Cells # 0.0 Sodium Level 127 L Potassium Level 3.6 Chloride Level 95 L Carbon Dioxide Level 20 L Anion Gap 16 Blood Urea Nitrogen 26 H Creatinine 1.49 H Glucose Level 134 Calcium Level 8.8 Phosphorus Level 4.8 Magnesium Level 1.9 Medications Medications Current Medications Ondansetron HCl (Zofran Inj) 4 mg Q6H PRN IV NAUSEA AND/OR VOMITING; Start 05/28 at 03:30 Acetaminophen (Tylenol Liquid) 650 mg Q6H PRN PO PAIN LEVEL 1-3 OR FEVER Last administered on 12/21/16 09:09; Admin Dose 650 MG; Start 12/19/16 at 03:30 Lorazepam (Ativan) 1 mg Q2H PRN IV ANXIETY Last administered on 12/20/16 00:06 ; Admin Dose 1 MG; Start 12/19/16 at 03:30 Famotidine (Pepcid) 20 mg DAILY PO Last administered on 12/21/16 08:58; Admin Dose 20 MG; Start 12/19/16 at 09:00 Hydralazine HCl (Apresoline) 10 mg Q4H PRN IV SBP > 160 Last administered on 15:44; Admin Dose 10 MG; Start 12/19/16 at 03:30 Metoprolol Tartrate (Lopressor) 50 mg BID PO Last administered on 12/21/16 08: 57; Admin Dose 50 MG; Start 12/20/16 at 09:00 Sodium Chloride 1 gm 1 gm TID PO Last administered on 12/21/16 13:21; Admin Dose 1 GM; Start 12/20/16 at 13:00 Ceftriaxone Sodium (Rocephin) 50 ml @ 100 mls/hr Q24H IVPB Last administered on 12/21/16 13:21; Admin Dose 100 MLS/HR; Start 12/20/16 at 12:00 Clonidine (Catapres) 0.1 mg Q6H PRN PO ELEVATED BLOOD PRESSURE; Start 12/20/16 at 18:30 Magnesium Hydroxide (Milk Of Mag) 30 ml DAILY PRN PO CONSTIPATION; Start at 21:00 FELICIA CABALLERO MD December 21, 2016 15:55
[2016-12-21] MEDS ORDERED: METOPROLOL 25 MG TAB PO SCH (16:00)
[2016-12-21] MEDS: AMLODIPINE 5 MG TAB PO SCH (16:10)
[2016-12-21] MEDS: LORAZEPAM 2 MG INJ IV PRN (16:33)
[2016-12-21 17:20] LABS: HEMATOCRIT 22.7 % (37.0-47.0)
[2016-12-21] MEDS: LABETALOL HCL 20MG INJ IV PRN (18:34)
[2016-12-21] MEDS ORDERED: hydrALAzine 20 MG INJ IV ONE (19:30)
[2016-12-22] VITALS (15 sets, daily range): BP systolic 106–204; BP diastolic 56–94; PULSE 63–83; RESP 16–20
[2016-12-22] MEDS: hydrALAzine 20 MG INJ IV PRN ×3 (03:56→20:26)
[2016-12-22] MEDS: METOPROLOL 50 MG TAB PO SCH ×2 (08:08→20:34)
[2016-12-22] MEDS: AMLODIPINE 5 MG TAB PO SCH (08:08)
[2016-12-22] MEDS: FAMOTIDINE 20 MG TAB PO SCH (08:09)
[2016-12-22] MEDS: SODIUM CHLORIDE 1 GM TAB PO SCH ×3 (08:09→20:38)
[2016-12-22 10:18] LABS: ADD SCAN DIFF NO
[2016-12-22 10:24] LABS: BASOPHIL # 0.1 10^3/ul (0.0-0.1); BASOPHILS % 0.6 % (0.0-2.0); EOSINOPHILS # 0.3 10^3/ul (0.0-0.5); EOSINOPHILS % 2.9 % (0.0-7.0); HEMATOCRIT 21.6 % (37.0-47.0); HEMOGLOBIN 7.5 g/dl (12.0-16.0); LYMPHOCYTES # 1.1 10^3/ul (0.8-2.9); LYMPHOCYTES % 12.8 % (15.0-51.0); MEAN CORPUSCULAR HGB CONC 34.7 g/dl (32.0-37.0); MEAN CORPUSCULAR VOLUME 86.4 fl (82.0-101.0); MEAN PLATELET VOLUME 9.1 fl (7.4-10.4); MONOCYTE # 0.7 10^3/ul (0.3-0.9); MONOCYTES % 8.2 % (0.0-11.0); NEUTROPHIL # 6.4 10^3/ul (1.6-7.5); NEUTROPHILS % 75.1 % (39.0-77.0); PLATELET COUNT 329 10^3/UL (140-415); RED CELL DISTRIBUTION WIDTH 12.4 % (11.5-14.5); WHITE BLOOD COUNT 8.5 10^3/ul (4.8-10.8)
[2016-12-22 10:43] LABS: CALCIUM 8.8 mg/dl (8.4-10.2); CREATININE 1.37 mg/dl (0.44-1.00); POTASSIUM 4.4 mmol/L (3.5-5.1)
[2016-12-22] MEDS: CEFTRIAXONE 1 GM/50 ML (PMX) 50 ML IVPB SCH (12:10)
[2016-12-22] MEDS ORDERED: SOD CHLORIDE 0.9% 250 ML IV* ONE (14:10)
--- NOTE | 2016-12-22 14:17 | PN ---
Date/Time of Note Date/Time of Note DATE: 12/22/16 TIME: 14:12 Assessment/Plan VTE Prophylaxis VTE Prophylaxis Intervention: SCD's Lines/Catheters IV C[facility] Type (from [facility] [place] Urinary Cath still in place: No Assessment/Plan Chief Complaint/Hosp Course ASSESSMENT AND PLAN: A 56-year-old female with history of hypertension and CKD , comes in with generalized weakness, shortness of breath, found with severe hyponatremia and hypertensive urgency. 1. Hyponatremia, again, appreciate renal consult - Na+ improving (120 -> 122 - > -> 127). Today sodium lower (118) - but pt asymptomatic - lab error? - Continue salt tabs, recheck BMP STAT - Follow up the final urine electrolyte studies as well. - Follow up renal recommendations. - Monitor BUN and creatinine levels, monitor sodium levels. 2. Hypertensive urgency. Blood pressure is stable after PO meds added. She did get IV hydralazine in the ER. - Continue to monitor for now. - Continue current p.o. blood pressure medicines Hydralazine and Metoprolol. 3. Generalized weakness, again secondary to #1, improving. Continue to monitor for now. 4. History of chronic kidney disease. Again avoid nephrotoxins, monitor. Follow up renal recommendations. 5. Gastrointestinal prophylaxis, Pepcid. 6. Deep venous thrombosis prophylaxis - SCDs. 7. anemia - no signs of GI bleeding - transfuse 1 unit pRBC - check stool occult test. Problems: Subjective 24 Hr Interval Summary Free Text/Dictation Pt had no acute events overnight, bp improved after new bp meds added. Exam/Review of Systems Vital Signs Vitals Vital Signs Date Time Temp Pulse Resp B/P Pulse Ox O2 Delivery O2 Flow Rate FiO2 12/22/16 13:09 66 12/22/16 12:12 98.5 18 126/66 98 12/22/16 00:00 Room Air Intake and Output 12/21/16 12/21/16 12/22/16 15:00 23:00 07:00 Intake Total 850 ml 890 ml Balance 850 ml 890 ml Exam GENERAL: Patient sitting up in bed, answering questions appropriately. No acute distress. HEENT: Pupils equal, round, react to light. Extraocular muscles intact. NECK: Supple, no thyromegaly. LUNGS: Clear to auscultation bilaterally. CARDIOVASCULAR: S1, S2 heard. No rubs or gallops. ABDOMEN: Soft, nontender, nondistended. Normal bowel sounds. No rebound or guarding. MUSCULOSKELETAL: No lower extremity edema bilaterally. NEUROLOGIC: No focal deficits. Results Result Diagram: 12/22/1695412/22/16954 Results 24 hrs Laboratory Tests Test 12/21/16 17:00 12/22/16 09:55 Hemoglobin 8.0 L 7.5 L Hematocrit 22.7 L 21.6 L White Blood Count 8.5 Red Blood Count 2.50 L Mean Corpuscular Volume 86.4 Mean Corpuscular Hemoglobin 30.0 Mean Corpuscular Hemoglobin Concent 34.7 Red Cell Distribution Width 12.4 Platelet Count 329 Mean Platelet Volume 9.1 Neutrophils % 75.1 Lymphocytes % 12.8 L Monocytes % 8.2 Eosinophils % 2.9 Basophils % 0.6 Nucleated Red Blood Cells % 0.0 Neutrophils # 6.4 Lymphocytes # 1.1 Monocytes # 0.7 Eosinophils # 0.3 Basophils # 0.1 Nucleated Red Blood Cells # 0.0 Sodium Level 118 *L Potassium Level 4.4 Chloride Level 91 L Carbon Dioxide Level 18 L Anion Gap 13 Blood Urea Nitrogen 24 H Creatinine 1.37 H Glucose Level 146 Calcium Level 8.8 Medications Medications Current Medications Ondansetron HCl (Zofran Inj) 4 mg Q6H PRN IV NAUSEA AND/OR VOMITING Last administered on 12/22/16 12:09; Admin Dose 4 MG; Start 12/19/16 at 03:30 Acetaminophen (Tylenol Liquid) 650 mg Q6H PRN PO PAIN LEVEL 1-3 OR FEVER Last administered on 12/21/16 09:09; Admin Dose 650 MG; Start 12/19/16 at 03:30 Lorazepam (Ativan) 1 mg Q2H PRN IV ANXIETY Last administered on 12/21/16 16:33 ; Admin Dose 1 MG; Start 12/19/16 at 03:30 Famotidine (Pepcid) 20 mg DAILY PO Last administered on 12/22/16 08:09; Admin Dose 20 MG; Start 12/19/16 at 09:00 Hydralazine HCl (Apresoline) 10 mg Q4H PRN IV SBP > 160 Last administered on 03:56; Admin Dose 10 MG; Start 5/10/17 at 03:30 Metoprolol Tartrate (Lopressor) 50 mg BID PO Last administered on 12/22/16 08: 08; Admin Dose 50 MG; Start 12/20/16 at 09:00 Sodium Chloride 1 gm 1 gm TID PO Last administered on 12/22/16 12:45; Admin Dose 1 GM; Start 12/20/16 at 13:00 Ceftriaxone Sodium (Rocephin) 50 ml @ 100 mls/hr Q24H IVPB Last administered on 12/22/16 12:10; Admin Dose 100 MLS/HR; Start 12/20/16 at 12:00 Clonidine (Catapres) 0.1 mg Q6H PRN PO ELEVATED BLOOD PRESSURE Last administered on 12/22/16 03:55; Admin Dose 0.1 MG; Start 12/20/16 at 18:30 Magnesium Hydroxide (Milk Of Mag) 30 ml DAILY PRN PO CONSTIPATION; Start at 21:00 Amlodipine Besylate (Norvasc) 5 mg DAILY PO Last administered on 12/22/16 08: 08; Admin Dose 5 MG; Start 12/21/16 at 16:00 Hydralazine HCl (Apresoline) 25 mg TID PO Last administered on 12/22/16 08:09 ; Admin Dose 25 MG; Start 12/21/16 at 21:00 Labetalol HCl 20 mg 20 mg Q4 PRN IV sbp >170 Last administered on 12/21/16 18 :34; Admin Dose 20 MG; Start 12/21/16 at 18:30 Sodium Chloride (NS) 250 ml @ 0 mls/hr Q0M ONCE IV* ; Start 12/22/16 at 14:10; Stop 12/22/16 at 14:11; Status BRITTNI MORGAN December 22, 2016 14:17
[2016-12-22 14:22] LABS: CALCIUM 8.7 mg/dl (8.4-10.2); CREATININE 1.29 mg/dl (0.44-1.00); POTASSIUM 4.2 mmol/L (3.5-5.1)
[2016-12-22] MEDS: LORAZEPAM 2 MG INJ IV PRN (14:45)
[2016-12-22] MEDS ORDERED: FUROSEMIDE 20 MG INJ IV SCH (15:30)
--- NOTE | 2016-12-22 15:36 | CONS ---
Date/Time of Note Date/Time of Note DATE: 12/22/16 TIME: 15:32 Assessment/Plan Assessment/Plan Additional Assessment/Plan 1. Severe Hyponatremia 2. Hypertensive Urgency 3. Generalized weakness 4. CKD 5. Anemia, likely 2/2 chronic disease and CKD As patient is asymptomatic no acute indication for Hypertonic saline Re-iterated Free H20 Restricted Diet HTN better controlled, cont current Rx and plan. Check Urine Na and Osm again prior to lasix with PRBC transfusion Cont NaCL tabs TID Cont to monitor NA BID. Thank you for the opportunity to participate in the care of Ms Raza Further recommendations to follow once studies reviewed. Consultation Date/Type/Reason Admit Date/Time December 19, 2016 at 03:32 Initial Consult Date 12/19/16 Type of Consultation: Renal Referring Provider: BRITTNI ESCOTO 24 HR Interval Summary Free Text/Dictation BP elevated however better controlled after Hydralazine. Na dropped and repeat confirmed, RN feels patient was not compliant with Free H20 restriction. Good UO. No HERMAN, NO confusion, No AMS Exam/Review of Systems Vital Signs Vitals Vital Signs Date Time Temp Pulse Resp B/P Pulse Ox O2 Delivery O2 Flow Rate FiO2 12/22/16 13:09 66 12/22/16 12:12 98.5 18 126/66 98 12/22/16 00:00 Room Air Intake and Output 12/21/16 12/21/16 12/22/16 15:00 23:00 07:00 Intake Total 850 ml 890 ml Balance 850 ml 890 ml Exam Constitutional: alert, oriented, No distress Psych: No anxiety, No confusion, No depression Head: No atraumatic Eyes: EOMI Neck: No jvd Respiratory: clear to auscultation Cardiovascular: regular rate and rhythm, No edema Gastrointestinal: non-tender, soft Extremities: No edema Neurological: TIRE INSPECTOR II-XII intact, nl mental status, nl speech, nl strength, No confused, No focal weakness, No lethargic Skin: No diaphoresis Results Result Diagram: 12/22/16 0955 12/22/16 1320 Results 24 hrs Laboratory Tests Test 12/21/16 17:00 12/22/16 09:55 12/22/16 13:20 Hemoglobin 8.0 L 7.5 L Hematocrit 22.7 L 21.6 L White Blood Count 8.5 Red Blood Count 2.50 L Mean Corpuscular Volume 86.4 Mean Corpuscular Hemoglobin 30.0 Mean Corpuscular Hemoglobin Concent 34.7 Red Cell Distribution Width 12.4 Platelet Count 329 Mean Platelet Volume 9.1 Neutrophils % 75.1 Lymphocytes % 12.8 L Monocytes % 8.2 Eosinophils % 2.9 Basophils % 0.6 Nucleated Red Blood Cells % 0.0 Neutrophils # 6.4 Lymphocytes # 1.1 Monocytes # 0.7 Eosinophils # 0.3 Basophils # 0.1 Nucleated Red Blood Cells # 0.0 Sodium Level 118 *L 118 *L Potassium Level 4.4 4.2 Chloride Level 91 L 93 L Carbon Dioxide Level 18 L 18 L Anion Gap 13 11 Blood Urea Nitrogen 24 H 25 H Creatinine 1.37 H 1.29 H Glucose Level 146 115 Calcium Level 8.8 8.7 Medications Medications Current Medications Ondansetron HCl (Zofran Inj) 4 mg Q6H PRN IV NAUSEA AND/OR VOMITING Last administered on 12/22/16 12:09; Admin Dose 4 MG; Start 12/19/16 at 03:30 Acetaminophen (Tylenol Liquid) 650 mg Q6H PRN PO PAIN LEVEL 1-3 OR FEVER Last administered on 12/21/16 09:09; Admin Dose 650 MG; Start 12/19/16 at 03:30 Lorazepam (Ativan) 1 mg Q2H PRN IV ANXIETY Last administered on 12/22/16 14:45 ; Admin Dose 1 MG; Start 12/19/16 at 03:30 Famotidine (Pepcid) 20 mg DAILY PO Last administered on 12/22/16 08:09; Admin Dose 20 MG; Start 12/19/16 at 09:00 Hydralazine HCl (Apresoline) 10 mg Q4H PRN IV SBP > 160 Last administered on 03:56; Admin Dose 10 MG; Start 12/19/16 at 03:30 Metoprolol Tartrate 50 mg 50 mg BID PO Last administered on 12/22/16 08:08; Admin Dose 50 MG; Start 12/20/16 at 09:00 Ceftriaxone Sodium (Rocephin) 50 ml @ 100 mls/hr Q24H IVPB Last administered on 12/22/16 12:10; Admin Dose 100 MLS/HR; Start 12/20/16 at 12:00 Clonidine (Catapres) 0.1 mg Q6H PRN PO ELEVATED BLOOD PRESSURE Last administered on 12/22/16 03:55; Admin Dose 0.1 MG; Start 12/20/16 at 18:30 Magnesium Hydroxide (Milk Of Mag) 30 ml DAILY PRN PO CONSTIPATION; Start at 21:00 Hydralazine HCl (Apresoline) 25 mg TID PO Last administered on 12/22/16 14:39 ; Admin Dose 25 MG; Start 12/21/16 at 21:00 Labetalol HCl (Labetalol) 20 mg Q4 PRN IV sbp >170 Last administered on 18:34; Admin Dose 20 MG; Start 12/21/16 at 18:30 Sodium Chloride (Nacl) 2 gm TID PO ; Start 12/22/16 at 21:00 FELICIA CABALLERO MD December 22, 2016 15:36
[2016-12-22] MEDS: MAGNESIUM HYDROXIDE 30ML CUP PO PRN (20:36)
[2016-12-23] VITALS (13 sets, daily range): BP systolic 154–218; BP diastolic 73–104; PULSE 56–70; RESP 16–18
[2016-12-23] MEDS: hydrALAzine 20 MG INJ IV PRN ×3 (06:35→20:01)
[2016-12-23] MEDS: ACETAMINOPHEN 650MG/20.3ML CUP PO PRN (06:37)
[2016-12-23 09:13] LABS: ADD SCAN DIFF NO
[2016-12-23 09:15] LABS: BASOPHIL # 0.1 10^3/ul (0.0-0.1); BASOPHILS % 0.6 % (0.0-2.0); EOSINOPHILS # 0.3 10^3/ul (0.0-0.5); EOSINOPHILS % 4.3 % (0.0-7.0); HEMATOCRIT 25.4 % (37.0-47.0); HEMOGLOBIN 8.8 g/dl (12.0-16.0); MEAN CORPUSCULAR HEMOGLOBIN 29.6 pg (29.0-33.0); MEAN CORPUSCULAR HGB CONC 34.6 g/dl (32.0-37.0); MEAN CORPUSCULAR VOLUME 85.5 fl (82.0-101.0); MEAN PLATELET VOLUME 9.1 fl (7.4-10.4); MONOCYTE # 0.7 10^3/ul (0.3-0.9); MONOCYTES % 9.4 % (0.0-11.0); NEUTROPHIL # 5.7 10^3/ul (1.6-7.5); NEUTROPHILS % 72.3 % (39.0-77.0); PLATELET COUNT 328 10^3/UL (140-415); RED BLOOD COUNT 2.97 10^6/ul (4.20-5.40); RED CELL DISTRIBUTION WIDTH 12.5 % (11.5-14.5); WHITE BLOOD COUNT 7.9 10^3/ul (4.8-10.8)
[2016-12-23] MEDS: FAMOTIDINE 20 MG TAB PO SCH (09:17)
[2016-12-23] MEDS: METOPROLOL 50 MG TAB PO SCH (09:17)
[2016-12-23] MEDS: SODIUM CHLORIDE 1 GM TAB PO SCH ×3 (09:17→20:01)
--- NOTE | 2016-12-23 09:39 | CONS ---
Date/Time of Note Date/Time of Note DATE: 12/23/16 TIME: 09:39 Assessment/Plan Assessment/Plan Additional Assessment/Plan 1. Severe Hyponatremia 2. Hypertensive Urgency 3. Generalized weakness 4. CKD 5. Anemia, likely 2/2 chronic disease and CKD As patient is asymptomatic no acute indication for Hypertonic saline Re-iterated Free H20 Restricted Diet HTN better controlled, cont current Rx and plan. Check Urine Na and Osm again prior to lasix with PRBC transfusion Cont NaCL tabs TID Cont to monitor NA BID. Thank you for the opportunity to participate in the care of Ms Raza Further recommendations to follow once studies reviewed. Consultation Date/Type/Reason Admit Date/Time December 19, 2016 at 03:32 Initial Consult Date 12/19/16 Type of Consultation: Renal Referring Provider: BRITTNI ESCOTO 24 HR Interval Summary Constitutional: No requiring O2 Exam/Review of Systems Vital Signs Vitals Vital Signs Date Time Temp Pulse Resp B/P Pulse Ox O2 Delivery O2 Flow Rate FiO2 12/23/16 08:05 70 12/23/16 07:33 98.4 16 162/74 99 12/22/16 00:00 Room Air Intake and Output 12/22/16 12/22/16 12/23/16 15:00 23:00 07:00 Intake Total 50 ml 1490 ml 340 ml Output Total 800 ml 600 ml Balance 50 ml 690 ml -260 ml Exam Constitutional: No distress Eyes: EOMI Neck: No jvd Respiratory: clear to auscultation Cardiovascular: regular rate and rhythm, No edema Gastrointestinal: non-tender, soft Neurological: AIRFREIGHT OPERATIONS AGENT II-XII intact, nl mental status, nl speech, No lethargic Results Result Diagram: 12/23/16 0900 12/22/16 1320 Results 24 hrs Laboratory Tests Test 12/22/16 09:55 12/22/16 13:20 12/22/16 16:15 12/23/16 09:00 White Blood Count 8.5 7.9 Red Blood Count 2.50 L 2.97 L Hemoglobin 7.5 L 8.8 L Hematocrit 21.6 L 25.4 L Mean Corpuscular Volume 86.4 85.5 Mean Corpuscular Hemoglobin 30.0 29.6 Mean Corpuscular Hemoglobin Concent 34.7 34.6 Red Cell Distribution Width 12.4 12.5 Platelet Count 329 328 Mean Platelet Volume 9.1 9.1 Neutrophils % 75.1 72.3 Lymphocytes % 12.8 L 13.0 L Monocytes % 8.2 9.4 Eosinophils % 2.9 4.3 Basophils % 0.6 0.6 Nucleated Red Blood Cells % 0.0 0.0 Neutrophils # 6.4 5.7 Lymphocytes # 1.1 1.0 Monocytes # 0.7 0.7 Eosinophils # 0.3 0.3 Basophils # 0.1 0.1 Nucleated Red Blood Cells # 0.0 0.0 Sodium Level 118 *L 118 *L Potassium Level 4.4 4.2 Chloride Level 91 L 93 L Carbon Dioxide Level 18 L 18 L Anion Gap 13 11 Blood Urea Nitrogen 24 H 25 H Creatinine 1.37 H 1.29 H Glucose Level 146 115 Calcium Level 8.8 8.7 Urine Osmolality 130 L Urine Random Sodium 26 L Medications Medications Current Medications Ondansetron HCl (Zofran Inj) 4 mg Q6H PRN IV NAUSEA AND/OR VOMITING Last administered on 12/22/16 12:09; Admin Dose 4 MG; Start 12/19/16 at 03:30 Acetaminophen (Tylenol Liquid) 650 mg Q6H PRN PO PAIN LEVEL 1-3 OR FEVER Last administered on 12/23/16 06:37; Admin Dose 650 MG; Start 12/19/16 at 03:30 Lorazepam (Ativan) 1 mg Q2H PRN IV ANXIETY Last administered on 12/22/16 14:45 ; Admin Dose 1 MG; Start 12/19/16 at 03:30 Famotidine (Pepcid) 20 mg DAILY PO Last administered on 12/23/16 09:17; Admin Dose 20 MG; Start 12/19/16 at 09:00 Hydralazine HCl (Apresoline) 10 mg Q4H PRN IV SBP > 160 Last administered on 06:35; Admin Dose 10 MG; Start 12/19/16 at 03:30 Metoprolol Tartrate 50 mg 50 mg BID PO Last administered on 12/23/16 09:17; Admin Dose 50 MG; Start 12/20/16 at 09:00 Ceftriaxone Sodium (Rocephin) 50 ml @ 100 mls/hr Q24H IVPB Last administered on 12/22/16 12:10; Admin Dose 100 MLS/HR; Start 12/20/16 at 12:00 Clonidine (Catapres) 0.1 mg Q6H PRN PO ELEVATED BLOOD PRESSURE Last administered on 12/23/16 06:35; Admin Dose 0.1 MG; Start 12/20/16 at 18:30 Magnesium Hydroxide (Milk Of Mag) 30 ml DAILY PRN PO CONSTIPATION Last administered on 12/22/16 20:36; Admin Dose 30 ML; Start 12/20/16 at 21:00 Hydralazine HCl (Apresoline) 25 mg TID PO Last administered on 12/23/16 09:18 ; Admin Dose 25 MG; Start 12/21/16 at 21:00 Labetalol HCl (Labetalol) 20 mg Q4 PRN IV sbp >170 Last administered on 18:34; Admin Dose 20 MG; Start 12/21/16 at 18:30 Sodium Chloride (Nacl) 2 gm TID PO Last administered on 12/23/16 09:17; Admin Dose 2 GM; Start 12/22/16 at 21:00 FELICIA CABALLERO MD December 23, 2016 09:39
[2016-12-23 09:48] LABS: CREATININE 1.39 mg/dl (0.44-1.00); POTASSIUM 4.2 mmol/L (3.5-5.1)
[2016-12-23] MEDS: CEFTRIAXONE 1 GM/50 ML (PMX) 50 ML IVPB SCH (12:37)
--- NOTE | 2016-12-23 14:47 | PN ---
Date/Time of Note Date/Time of Note DATE: 12/23/16 TIME: 14:43 Assessment/Plan VTE Prophylaxis VTE Prophylaxis Intervention: SCD's Lines/Catheters IV Catheter Type (from [facility]): Peripheral IV Urinary Cath still in place: No Assessment/Plan Chief Complaint/Hosp Course ASSESSMENT AND PLAN: A 56-year-old female with history of hypertension and CKD , comes in with generalized weakness, shortness of breath, found with severe hyponatremia and hypertensive urgency. 1. Hyponatremia, again, appreciate renal consult - Na+ now improving (120 -> 122 -> -> 127 -> 118 -> 118 -> 126). - Continue salt tabs - Follow up the final urine electrolyte studies as well. - Follow up renal recommendations. - Monitor BUN and creatinine levels, monitor sodium levels. 2. Hypertensive urgency - had imptoved, but high again today in last 24 hrs.She did get IV hydralazine in the ER. - Continue to monitor for now. - Continue current p.o. blood pressure medicines Hydralazine and Metoprolol , will increase dosages of these today. 3. Generalized weakness, again secondary to #1, improving. Continue to monitor for now. 4. History of chronic kidney disease. Again avoid nephrotoxins, monitor. Follow up renal recommendations. 5. Gastrointestinal prophylaxis, Pepcid. 6. Deep venous thrombosis prophylaxis - SCDs. 7. anemia - no signs of GI bleeding - transfuse 1 unit pRBC - check stool occult test. Problems: Subjective 24 Hr Interval Summary Free Text/Dictation No acute events overnight. Exam/Review of Systems Vital Signs Vitals Vital Signs Date Time Temp Pulse Resp B/P Pulse Ox O2 Delivery O2 Flow Rate FiO2 12/23/16 12:08 56 12/23/16 11:56 98.3 18 186/93 100 12/22/16 00:00 Room Air Intake and Output 12/22/16 12/22/16 12/23/16 15:00 23:00 07:00 Intake Total 50 ml 1490 ml 340 ml Output Total 800 ml 600 ml Balance 50 ml 690 ml -260 ml Exam GENERAL: Patient sitting up in bed, answering questions appropriately. No acute distress. HEENT: Pupils equal, round, react to light. Extraocular muscles intact. NECK: Supple, no thyromegaly. LUNGS: Clear to auscultation bilaterally. CARDIOVASCULAR: S1, S2 heard. No rubs or gallops. ABDOMEN: Soft, nontender, nondistended. Normal bowel sounds. No rebound or guarding. MUSCULOSKELETAL: No lower extremity edema bilaterally. NEUROLOGIC: No focal deficits. Results Result Diagram: 12/23/16 0900 12/23/16 0900 Results 24 hrs Laboratory Tests Test 12/22/16 16:15 12/23/16 02:00 12/23/16 09:00 Urine Osmolality 130 L Urine Random Sodium 26 L Stool Occult Blood NEGATIVE White Blood Count 7.9 Red Blood Count 2.97 L Hemoglobin 8.8 L Hematocrit 25.4 L Mean Corpuscular Volume 85.5 Mean Corpuscular Hemoglobin 29.6 Mean Corpuscular Hemoglobin Concent 34.6 Red Cell Distribution Width 12.5 Platelet Count 328 Mean Platelet Volume 9.1 Neutrophils % 72.3 Lymphocytes % 13.0 L Monocytes % 9.4 Eosinophils % 4.3 Basophils % 0.6 Nucleated Red Blood Cells % 0.0 Neutrophils # 5.7 Lymphocytes # 1.0 Monocytes # 0.7 Eosinophils # 0.3 Basophils # 0.1 Nucleated Red Blood Cells # 0.0 Sodium Level 126 L Potassium Level 4.2 Chloride Level 92 L Carbon Dioxide Level 20 L Anion Gap 18 #H Blood Urea Nitrogen 29 H Creatinine 1.39 H Glucose Level 144 Calcium Level 9.0 Medications Medications Current Medications Ondansetron HCl (Zofran Inj) 4 mg Q6H PRN IV NAUSEA AND/OR VOMITING Last administered on 12/22/16 12:09; Admin Dose 4 MG; Start 12/19/16 at 03:30 Acetaminophen (Tylenol Liquid) 650 mg Q6H PRN PO PAIN LEVEL 1-3 OR FEVER Last administered on 12/23/16 06:37; Admin Dose 650 MG; Start 12/19/16 at 03:30 Lorazepam (Ativan) 1 mg Q2H PRN IV ANXIETY Last administered on 12/22/16 14:45 ; Admin Dose 1 MG; Start 12/19/16 at 03:30 Famotidine (Pepcid) 20 mg DAILY PO Last administered on 12/23/16 09:17; Admin Dose 20 MG; Start 12/19/16 at 09:00 Hydralazine HCl (Apresoline) 10 mg Q4H PRN IV SBP > 160 Last administered on 06:35; Admin Dose 10 MG; Start 12/19/16 at 03:30 Metoprolol Tartrate 50 mg 50 mg BID PO Last administered on 12/23/16 09:17; Admin Dose 50 MG; Start 12/20/16 at 09:00 Ceftriaxone Sodium (Rocephin) 50 ml @ 100 mls/hr Q24H IVPB Last administered on 12/23/16 12:37; Admin Dose 100 MLS/HR; Start 12/20/16 at 12:00 Clonidine (Catapres) 0.1 mg Q6H PRN PO ELEVATED BLOOD PRESSURE Last administered on 12/23/16 06:35; Admin Dose 0.1 MG; Start 12/20/16 at 18:30 Magnesium Hydroxide (Milk Of Mag) 30 ml DAILY PRN PO CONSTIPATION Last administered on 12/22/16 20:36; Admin Dose 30 ML; Start 12/20/16 at 21:00 Hydralazine HCl (Apresoline) 25 mg TID PO Last administered on 12/23/16 12:45 ; Admin Dose 25 MG; Start 12/21/16 at 21:00 Labetalol HCl (Labetalol) 20 mg Q4 PRN IV sbp >170 Last administered on 18:34; Admin Dose 20 MG; Start 12/21/16 at 18:30 Sodium Chloride (Nacl) 2 gm TID PO Last administered on 12/23/16 12:45; Admin Dose 2 GM; Start 12/22/16 at 21:00 BRITTNI ESCOTO December 23, 2016 14:47
[2016-12-23] MEDS ORDERED: AMLODIPINE 5 MG TAB PO SCH (15:00)
[2016-12-23] MEDS: METOPROLOL 25 MG TAB PO SCH (20:58)
[2016-12-23] MEDS: LORAZEPAM 2 MG INJ IV PRN (22:40)
[2016-12-24] VITALS (15 sets, daily range): BP systolic 115–226; BP diastolic 55–107; PULSE 55–75; RESP 16–20
[2016-12-24] MEDS: LABETALOL HCL 20MG INJ IV PRN (04:06)
[2016-12-24] MEDS: FAMOTIDINE 20 MG TAB PO SCH (08:01)
[2016-12-24] MEDS: METOPROLOL 25 MG TAB PO SCH ×2 (08:01→20:24)
[2016-12-24] MEDS: SODIUM CHLORIDE 1 GM TAB PO SCH ×3 (08:01→20:22)
[2016-12-24 08:19] LABS: ADD SCAN DIFF NO
[2016-12-24 08:26] LABS: BASOPHIL # 0.1 10^3/ul (0.0-0.1); BASOPHILS % 0.9 % (0.0-2.0); EOSINOPHILS # 0.2 10^3/ul (0.0-0.5); EOSINOPHILS % 2.1 % (0.0-7.0); HEMATOCRIT 24.4 % (37.0-47.0); HEMOGLOBIN 8.1 g/dl (12.0-16.0); LYMPHOCYTES % 13.3 % (15.0-51.0); MEAN CORPUSCULAR HEMOGLOBIN 29.2 pg (29.0-33.0); MEAN CORPUSCULAR HGB CONC 33.2 g/dl (32.0-37.0); MEAN CORPUSCULAR VOLUME 88.1 fl (82.0-101.0); MEAN PLATELET VOLUME 9.4 fl (7.4-10.4); MONOCYTE # 0.8 10^3/ul (0.3-0.9); MONOCYTES % 10.6 % (0.0-11.0); NEUTROPHIL # 5.5 10^3/ul (1.6-7.5); NEUTROPHILS % 72.7 % (39.0-77.0); PLATELET COUNT 345 10^3/UL (140-415); RED BLOOD COUNT 2.77 10^6/ul (4.20-5.40); RED CELL DISTRIBUTION WIDTH 12.7 % (11.5-14.5); WHITE BLOOD COUNT 7.6 10^3/ul (4.8-10.8)
[2016-12-24 08:48] LABS: CALCIUM 9.1 mg/dl (8.4-10.2); CREATININE 1.43 mg/dl (0.44-1.00); POTASSIUM 4.2 mmol/L (3.5-5.1)
--- NOTE | 2016-12-24 09:07 | CONS ---
Date/Time of Note Date/Time of Note DATE: 12/24/16 TIME: 09:07 Assessment/Plan Assessment/Plan Additional Assessment/Plan 1. Severe Hyponatremia 2. Hypertensive Urgency 3. Generalized weakness 4. CKD 5. Anemia, likely 2/2 chronic disease and CKD As patient is asymptomatic no acute indication for Hypertonic saline Na continues to improve, 128. Re-iterated Free H20 Restricted Diet BP Elevated Check Urine Na and Osm again prior to lasix with PRBC transfusion Cont NaCL tabs TID Thank you for the opportunity to participate in the care of Ms Raza Further recommendations to follow once studies reviewed. Consultation Date/Type/Reason Admit Date/Time December 19, 2016 at 03:32 Initial Consult Date 12/19/16 Type of Consultation: Renal Referring Provider: BRITTNI ESCOTO 24 HR Interval Summary Free Text/Dictation No new complaints, anxious to go home Exam/Review of Systems Vital Signs Vitals Vital Signs Date Time Temp Pulse Resp B/P Pulse Ox O2 Delivery O2 Flow Rate FiO2 12/24/16 08:39 75 12/24/16 07:24 98.6 17 187/86 97 12/22/16 00:00 Room Air Intake and Output 12/23/16 12/23/16 12/24/16 15:00 23:00 07:00 Intake Total 720 ml 480 ml Balance 720 ml 480 ml Exam Constitutional: No distress ENMT: mucosa pink and moist Neck: No jvd Respiratory: clear to auscultation Cardiovascular: regular rate and rhythm, No edema Gastrointestinal: non-tender, soft Neurological: EXERCISE SCIENTIST II-XII intact, nl mental status, No confused Results Result Diagram: 12/24/16 0758 12/24/16 0758 Results 24 hrs Laboratory Tests Test 12/24/16 06:05 12/24/16 07:58 Lab Scanned Report BLOOD TRANSFUSION White Blood Count 7.6 Red Blood Count 2.77 L Hemoglobin 8.1 L Hematocrit 24.4 L Mean Corpuscular Volume 88.1 Mean Corpuscular Hemoglobin 29.2 Mean Corpuscular Hemoglobin Concent 33.2 Red Cell Distribution Width 12.7 Platelet Count 345 Mean Platelet Volume 9.4 Neutrophils % 72.7 Lymphocytes % 13.3 L Monocytes % 10.6 Eosinophils % 2.1 Basophils % 0.9 Nucleated Red Blood Cells % 0.0 Neutrophils # 5.5 Lymphocytes # 1.0 Monocytes # 0.8 Eosinophils # 0.2 Basophils # 0.1 Nucleated Red Blood Cells # 0.0 Sodium Level 128 L Potassium Level 4.2 Chloride Level 97 Carbon Dioxide Level 21 Anion Gap 14 Blood Urea Nitrogen 29 H Creatinine 1.43 H Glucose Level 107 Calcium Level 9.1 Medications Medications Current Medications Ondansetron HCl (Zofran Inj) 4 mg Q6H PRN IV NAUSEA AND/OR VOMITING Last administered on 12/22/16 12:09; Admin Dose 4 MG; Start 12/19/16 at 03:30 Acetaminophen (Tylenol Liquid) 650 mg Q6H PRN PO PAIN LEVEL 1-3 OR FEVER Last administered on 12/23/16 06:37; Admin Dose 650 MG; Start 12/19/16 at 03:30 Lorazepam (Ativan) 1 mg Q2H PRN IV ANXIETY Last administered on 12/23/16 22:40 ; Admin Dose 1 MG; Start 12/19/16 at 03:30 Famotidine (Pepcid) 20 mg DAILY PO Last administered on 12/24/16 08:01; Admin Dose 20 MG; Start 12/19/16 at 09:00 Hydralazine HCl 10 mg 10 mg Q4H PRN IV SBP > 160 Last administered on 20:01; Admin Dose 10 MG; Start 12/19/16 at 03:30 Ceftriaxone Sodium (Rocephin) 50 ml @ 100 mls/hr Q24H IVPB Last administered on 12/23/16 12:37; Admin Dose 100 MLS/HR; Start 12/20/16 at 12:00 Clonidine (Catapres) 0.1 mg Q6H PRN PO ELEVATED BLOOD PRESSURE Last administered on 12/24/16 04:06; Admin Dose 0.1 MG; Start 12/20/16 at 18:30 Magnesium Hydroxide (Milk Of Mag) 30 ml DAILY PRN PO CONSTIPATION Last administered on 12/22/16 20:36; Admin Dose 30 ML; Start 12/20/16 at 21:00 Labetalol HCl (Labetalol) 20 mg Q4 PRN IV sbp >170 Last administered on 04:06; Admin Dose 20 MG; Start 12/21/16 at 18:30 Sodium Chloride (Nacl) 2 gm TID PO Last administered on 12/24/16 08:01; Admin Dose 2 GM; Start 12/22/16 at 21:00 Hydralazine HCl (Apresoline) 50 mg TID PO Last administered on 12/24/16 08:00 ; Admin Dose 50 MG; Start 12/23/16 at 21:00 Metoprolol Tartrate (Lopressor) 75 mg BID PO Last administered on 12/24/16 08: 01; Admin Dose 75 MG; Start 12/23/16 at 21:00 FELICIA CABALLERO MD December 24, 2016 09:07
[2016-12-24] MEDS ORDERED: AMLODIPINE 5 MG TAB PO SCH (09:30)
--- NOTE | 2016-12-24 12:32 | PN ---
Date/Time of Note Date/Time of Note DATE: 12/24/16 TIME: 12:30 Assessment/Plan VTE Prophylaxis VTE Prophylaxis Intervention: SCD's Lines/Catheters IV Catheter Type (from Nrs): Peripheral IV Urinary Cath still in place: No Assessment/Plan Assessment/Plan 1. Hyponatremia, free water restriction to 1000 mml/day 2. Hypertensive urgency change norvasc to procardia 3. Generalized weakness, again secondary to #1, improving. Continue to monitor for now. 4. History of chronic kidney disease. Again avoid nephrotoxins, monitor. Follow up renal recommendations. 5. Gastrointestinal prophylaxis, Pepcid. 6. Deep venous thrombosis prophylaxis - SCDs. 7. Normocytic anemia CKD related, follow up with H/H Subjective 24 Hr Interval Summary Free Text/Dictation dry mouth. no headache or shortness of breath Exam/Review of Systems Vital Signs Vitals Vital Signs Date Time Temp Pulse Resp B/P Pulse Ox O2 Delivery O2 Flow Rate FiO2 12/24/16 12:02 59 12/24/16 07:24 98.6 17 187/86 97 12/22/16 00:00 Room Air Intake and Output 12/23/16 12/23/16 12/24/16 15:00 23:00 07:00 Intake Total 720 ml 480 ml Balance 720 ml 480 ml Exam Constitutional: alert, oriented, well developed Psych: nl mood/affect, no complaints Head: atraumatic, normocephalic Eyes: EOMI, PERRL, nl conjunctiva, nl lids ENMT: nl external ears & nose, nl lips & teeth, nl nasal mucosa & septum Neck: non-tender, supple Respiratory: clear to auscultation, normal air movement, No congested cough, No crackles/rales, No diminished breath sounds, No intercostal retraction, No labored breathing, No other, No respirations, No tactile fremitus, No wheezing Cardiovascular: nl pulses, regular rate and rhythm, No S3, No S4, No bruits, No diastolic murmur, No edema, No gallop, No irregular rhythm, No jugular venous distention (JVD), No murmurs/extra sounds, No other, No rub, No systolic murmur Gastrointestinal: nl liver, spleen, non-tender, soft, No ascites, No bowel sounds, No distended, No firm, No hepatomegaly, No mass , No other, No rebound or guarding, No splenomegaly, No surgical scars, No tender Musculoskeletal: nl extremities to inspection, No joint tenderness, No muscle tone, No muscle weakness, No nl gait and stance, No other, No range of motion, No spine non-tender, No swelling Extremities: normal pulses, No calf tenderness, No clubbing, No cyanosis, No edema, No other, No palpable cord, No pitting pedal edema, No tenderness Neurological: ORE BRIDGE OPERATOR II-XII intact, nl mental status, nl speech, nl strength Skin: nl turgor Lymph: nl lymph nodes Results Result Diagram: 12/24/16 0758 12/24/16 0758 Results 24 hrs Laboratory Tests Test 12/24/16 06:05 12/24/16 07:58 Lab Scanned Report BLOOD TRANSFUSION White Blood Count 7.6 Red Blood Count 2.77 L Hemoglobin 8.1 L Hematocrit 24.4 L Mean Corpuscular Volume 88.1 Mean Corpuscular Hemoglobin 29.2 Mean Corpuscular Hemoglobin Concent 33.2 Red Cell Distribution Width 12.7 Platelet Count 345 Mean Platelet Volume 9.4 Neutrophils % 72.7 Lymphocytes % 13.3 L Monocytes % 10.6 Eosinophils % 2.1 Basophils % 0.9 Nucleated Red Blood Cells % 0.0 Neutrophils # 5.5 Lymphocytes # 1.0 Monocytes # 0.8 Eosinophils # 0.2 Basophils # 0.1 Nucleated Red Blood Cells # 0.0 Sodium Level 128 L Potassium Level 4.2 Chloride Level 97 Carbon Dioxide Level 21 Anion Gap 14 Blood Urea Nitrogen 29 H Creatinine 1.43 H Glucose Level 107 Calcium Level 9.1 Medications Medications Current Medications Ondansetron HCl (Zofran Inj) 4 mg Q6H PRN IV NAUSEA AND/OR VOMITING Last administered on 12/22/16 12:09; Admin Dose 4 MG; Start 12/19/16 at 03:30 Acetaminophen (Tylenol Liquid) 650 mg Q6H PRN PO PAIN LEVEL 1-3 OR FEVER Last administered on 12/23/16 06:37; Admin Dose 650 MG; Start 12/19/16 at 03:30 Lorazepam (Ativan) 1 mg Q2H PRN IV ANXIETY Last administered on 12/23/16 22:40 ; Admin Dose 1 MG; Start 12/19/16 at 03:30 Famotidine (Pepcid) 20 mg DAILY PO Last administered on 12/24/16 08:01; Admin Dose 20 MG; Start 12/19/16 at 09:00 Hydralazine HCl 10 mg 10 mg Q4H PRN IV SBP > 160 Last administered on 20:01; Admin Dose 10 MG; Start 12/19/16 at 03:30 Ceftriaxone Sodium (Rocephin) 50 ml @ 100 mls/hr Q24H IVPB Last administered on 12/23/16 12:37; Admin Dose 100 MLS/HR; Start 12/20/16 at 12:00 Magnesium Hydroxide (Milk Of Mag) 30 ml DAILY PRN PO CONSTIPATION Last administered on 12/22/16 20:36; Admin Dose 30 ML; Start 12/20/16 at 21:00 Labetalol HCl (Labetalol) 20 mg Q4 PRN IV sbp >170 Last administered on 04:06; Admin Dose 20 MG; Start 12/21/16 at 18:30 Hydralazine HCl (Apresoline) 50 mg TID PO Last administered on 12/24/16 08:00 ; Admin Dose 50 MG; Start 12/23/16 at 21:00 Metoprolol Tartrate (Lopressor) 75 mg BID PO Last administered on 12/24/16 08: 01; Admin Dose 75 MG; Start 12/23/16 at 21:00 Sodium Chloride (Nacl) 1 gm TID PO ; Start 12/24/16 at 13:00 Nifedipine (Procardia Xl) 60 mg DAILY PO ; Start 12/24/16 at 12:30; Status ALON ESCOBEDO MD December 24, 2016 12:32
[2016-12-24] MEDS: CEFTRIAXONE 1 GM/50 ML (PMX) 50 ML IVPB SCH (13:33)
[2016-12-24] MEDS: NIFEdipine (XL) 60 MG TAB PO SCH (13:34)
[2016-12-24] MEDS: LORAZEPAM 2 MG INJ IV PRN (23:19)
[2016-12-25] VITALS (15 sets, daily range): BP systolic 133–205; BP diastolic 72–98; PULSE 55–75; RESP 16–20
[2016-12-25] MEDS: hydrALAzine 20 MG INJ IV PRN ×2 (01:41→11:03)
[2016-12-25] MEDS: LORAZEPAM 2 MG INJ IV PRN (04:28)
[2016-12-25] MEDS: SODIUM CHLORIDE 1 GM TAB PO SCH ×3 (08:53→20:38)
[2016-12-25] MEDS: NIFEdipine (XL) 60 MG TAB PO SCH (08:54)
[2016-12-25] MEDS: METOPROLOL 25 MG TAB PO SCH (08:55)
[2016-12-25] MEDS: FAMOTIDINE 20 MG TAB PO SCH (08:55)
[2016-12-25 10:29] LABS: ADD SCAN DIFF NO
[2016-12-25 10:41] LABS: BASOPHIL # 0.1 10^3/ul (0.0-0.1); BASOPHILS % 0.7 % (0.0-2.0); EOSINOPHILS # 0.2 10^3/ul (0.0-0.5); EOSINOPHILS % 2.1 % (0.0-7.0); HEMOGLOBIN 9.3 g/dl (12.0-16.0); LYMPHOCYTES # 0.8 10^3/ul (0.8-2.9); LYMPHOCYTES % 9.7 % (15.0-51.0); MEAN CORPUSCULAR HEMOGLOBIN 29.4 pg (29.0-33.0); MEAN CORPUSCULAR HGB CONC 33.2 g/dl (32.0-37.0); MEAN CORPUSCULAR VOLUME 88.6 fl (82.0-101.0); MEAN PLATELET VOLUME 9.4 fl (7.4-10.4); MONOCYTE # 0.7 10^3/ul (0.3-0.9); MONOCYTES % 8.1 % (0.0-11.0); NEUTROPHIL # 6.7 10^3/ul (1.6-7.5); NEUTROPHILS % 78.8 % (39.0-77.0); PLATELET COUNT 386 10^3/UL (140-415); RED BLOOD COUNT 3.16 10^6/ul (4.20-5.40); RED CELL DISTRIBUTION WIDTH 12.6 % (11.5-14.5); WHITE BLOOD COUNT 8.4 10^3/ul (4.8-10.8)
[2016-12-25 11:06] LABS: CALCIUM 9.1 mg/dl (8.4-10.2); CREATININE 1.36 mg/dl (0.44-1.00); POTASSIUM 4.4 mmol/L (3.5-5.1)
[2016-12-25] MEDS: CEFTRIAXONE 1 GM/50 ML (PMX) 50 ML IVPB SCH (12:18)
--- NOTE | 2016-12-25 14:06 | PN ---
Date/Time of Note Date/Time of Note DATE: 12/25/16 TIME: 14:04 Assessment/Plan VTE Prophylaxis VTE Prophylaxis Intervention: SCD's Lines/Catheters IV Catheter Type (from Nrs): Saline Lock Urinary Cath still in place: No Assessment/Plan Assessment/Plan 1. Hyponatremia, free water restriction to 1000 ml/day 2. Hypertension, better controlled, increase procardia 3. Generalized weakness, again secondary to #1, improving. Continue to monitor for now. 4. History of chronic kidney disease. Again avoid nephrotoxins, monitor. Follow up renal recommendations. 5. Gastrointestinal prophylaxis, Pepcid. 6. Deep venous thrombosis prophylaxis - SCDs. 7. Normocytic anemia CKD related, stable Subjective 24 Hr Interval Summary Free Text/Dictation no headache, no dizziness. No shortness of chest pain Exam/Review of Systems Vital Signs Vitals Vital Signs Date Time Temp Pulse Resp B/P Pulse Ox O2 Delivery O2 Flow Rate FiO2 12/25/16 12:04 58 12/25/16 11:51 98.0 18 166/74 100 12/25/16 04:00 Room Air Intake and Output 12/24/16 12/24/16 12/25/16 15:00 23:00 07:00 Intake Total 60 ml 650 ml 300 ml Balance 60 ml 650 ml 300 ml Exam Constitutional: alert, oriented, well developed Psych: nl mood/affect, no complaints Head: atraumatic, normocephalic Eyes: EOMI, PERRL, nl conjunctiva, nl lids ENMT: nl external ears & nose, nl lips & teeth, nl nasal mucosa & septum Neck: non-tender, supple Respiratory: clear to auscultation, normal air movement, No congested cough, No crackles/rales, No diminished breath sounds, No intercostal retraction, No labored breathing, No other, No respirations, No tactile fremitus, No wheezing Cardiovascular: nl pulses, regular rate and rhythm, No S3, No S4, No bruits, No diastolic murmur, No edema, No gallop, No irregular rhythm, No jugular venous distention (JVD), No murmurs/extra sounds, No other, No rub, No systolic murmur Gastrointestinal: nl liver, spleen, non-tender, soft, No ascites, No bowel sounds, No distended, No firm, No hepatomegaly, No mass , No other, No rebound or guarding, No splenomegaly, No surgical scars, No tender Musculoskeletal: nl extremities to inspection Extremities: normal pulses, No calf tenderness, No clubbing, No cyanosis, No edema, No other, No palpable cord, No pitting pedal edema, No tenderness Neurological: PROGRESSIVE CARE MANAGER II-XII intact, nl mental status, nl speech, nl strength Skin: nl turgor Lymph: nl lymph nodes Results Result Diagram: 12/25/16 1004 12/25/16 1004 Results 24 hrs Laboratory Tests Test 12/25/16 10:04 White Blood Count 8.4 Red Blood Count 3.16 L Hemoglobin 9.3 L Hematocrit 28.0 L Mean Corpuscular Volume 88.6 Mean Corpuscular Hemoglobin 29.4 Mean Corpuscular Hemoglobin Concent 33.2 Red Cell Distribution Width 12.6 Platelet Count 386 Mean Platelet Volume 9.4 Neutrophils % 78.8 H Lymphocytes % 9.7 L Monocytes % 8.1 Eosinophils % 2.1 Basophils % 0.7 Nucleated Red Blood Cells % 0.0 Neutrophils # 6.7 Lymphocytes # 0.8 Monocytes # 0.7 Eosinophils # 0.2 Basophils # 0.1 Nucleated Red Blood Cells # 0.0 Sodium Level 130 L Potassium Level 4.4 Chloride Level 99 Carbon Dioxide Level 20 L Anion Gap 15 Blood Urea Nitrogen 28 H Creatinine 1.36 H Glucose Level 172 Calcium Level 9.1 Medications Medications Current Medications Ondansetron HCl (Zofran Inj) 4 mg Q6H PRN IV NAUSEA AND/OR VOMITING Last administered on 12/22/16 12:09; Admin Dose 4 MG; Start 12/19/16 at 03:30 Acetaminophen (Tylenol Liquid) 650 mg Q6H PRN PO PAIN LEVEL 1-3 OR FEVER Last administered on 12/23/16 06:37; Admin Dose 650 MG; Start 12/19/16 at 03:30 Lorazepam (Ativan) 1 mg Q2H PRN IV ANXIETY Last administered on 12/25/16 04:28 ; Admin Dose 1 MG; Start 12/19/16 at 03:30 Famotidine (Pepcid) 20 mg DAILY PO Last administered on 12/25/16 08:55; Admin Dose 20 MG; Start 12/19/16 at 09:00 Hydralazine HCl 10 mg 10 mg Q4H PRN IV SBP > 160 Last administered on 11:03; Admin Dose 10 MG; Start 12/19/16 at 03:30 Ceftriaxone Sodium (Rocephin) 50 ml @ 100 mls/hr Q24H IVPB Last administered on 12/25/16 12:18; Admin Dose 100 MLS/HR; Start 12/20/16 at 12:00 Magnesium Hydroxide (Milk Of Mag) 30 ml DAILY PRN PO CONSTIPATION Last administered on 12/22/16 20:36; Admin Dose 30 ML; Start 12/20/16 at 21:00 Labetalol HCl (Labetalol) 20 mg Q4 PRN IV sbp >170 Last administered on 04:06; Admin Dose 20 MG; Start 12/21/16 at 18:30 Hydralazine HCl (Apresoline) 50 mg TID PO Last administered on 12/25/16 12:18 ; Admin Dose 50 MG; Start 12/23/16 at 21:00 Metoprolol Tartrate (Lopressor) 75 mg BID PO Last administered on 12/25/16 08: 55; Admin Dose 75 MG; Start 12/23/16 at 21:00 Sodium Chloride (Nacl) 1 gm TID PO Last administered on 12/25/16 12:18; Admin Dose 1 GM; Start 12/24/16 at 13:00 Nifedipine (Procardia Xl) 60 mg DAILY PO Last administered on 12/25/16 08:54; Admin Dose 60 MG; Start 12/24/16 at 12:30 Simethicone (Mylicon) 80 mg Q6H PRN PO DISTENSION/GAS/BLOATING Last administered on 12/25/16 10:40; Admin Dose 80 MG; Start 12/25/16 at 04:30 ALON FLORES MD December 25, 2016 14:06
--- NOTE | 2016-12-25 16:52 | CONS ---
Date/Time of Note Date/Time of Note DATE: 12/25/16 TIME: 16:50 Assessment/Plan Assessment/Plan Additional Assessment/Plan 1. Severe Hyponatremia 2. Hypertensive Urgency 3. Generalized weakness 4. CKD 5. Anemia, likely 2/2 chronic disease and CKD As patient is asymptomatic no acute indication for Hypertonic saline Na continues to improve, 130 BP better today Change metoprolol to Labetalol for better BP control Thank you for the opportunity to participate in the care of Ms Raza Further recommendations to follow once studies reviewed. Consultation Date/Type/Reason Admit Date/Time December 19, 2016 at 03:32 Initial Consult Date 12/19/16 Type of Consultation: Renal Referring Provider: BRITTNI ESCOTO 24 HR Interval Summary Free Text/Dictation No new complaints, Anxous to go home Exam/Review of Systems Vital Signs Vitals Vital Signs Date Time Temp Pulse Resp B/P Pulse Ox O2 Delivery O2 Flow Rate FiO2 12/25/16 15:48 98.6 63 16 165/79 99 12/25/16 04:00 Room Air Intake and Output 12/24/16 12/24/16 12/25/16 15:00 23:00 07:00 Intake Total 60 ml 650 ml 300 ml Balance 60 ml 650 ml 300 ml Exam Constitutional: No distress ENMT: mucosa pink and moist Neck: No jvd Respiratory: clear to auscultation Cardiovascular: regular rate and rhythm, No edema Gastrointestinal: non-tender, soft Neurological: CONSULTING SERVICES MANAGER II-XII intact, nl mental status, nl speech, nl strength, No lethargic Skin: No diaphoresis Results Result Diagram: 12/25/16 1004 12/25/16 1004 Results 24 hrs Laboratory Tests Test 12/25/16 10:04 White Blood Count 8.4 Red Blood Count 3.16 L Hemoglobin 9.3 L Hematocrit 28.0 L Mean Corpuscular Volume 88.6 Mean Corpuscular Hemoglobin 29.4 Mean Corpuscular Hemoglobin Concent 33.2 Red Cell Distribution Width 12.6 Platelet Count 386 Mean Platelet Volume 9.4 Neutrophils % 78.8 H Lymphocytes % 9.7 L Monocytes % 8.1 Eosinophils % 2.1 Basophils % 0.7 Nucleated Red Blood Cells % 0.0 Neutrophils # 6.7 Lymphocytes # 0.8 Monocytes # 0.7 Eosinophils # 0.2 Basophils # 0.1 Nucleated Red Blood Cells # 0.0 Sodium Level 130 L Potassium Level 4.4 Chloride Level 99 Carbon Dioxide Level 20 L Anion Gap 15 Blood Urea Nitrogen 28 H Creatinine 1.36 H Glucose Level 172 Calcium Level 9.1 Medications Medications Current Medications Ondansetron HCl (Zofran Inj) 4 mg Q6H PRN IV NAUSEA AND/OR VOMITING Last administered on 12/22/16 12:09; Admin Dose 4 MG; Start 12/19/16 at 03:30 Acetaminophen (Tylenol Liquid) 650 mg Q6H PRN PO PAIN LEVEL 1-3 OR FEVER Last administered on 12/23/16 06:37; Admin Dose 650 MG; Start 12/19/16 at 03:30 Lorazepam (Ativan) 1 mg Q2H PRN IV ANXIETY Last administered on 12/25/16 04:28 ; Admin Dose 1 MG; Start 12/19/16 at 03:30 Famotidine (Pepcid) 20 mg DAILY PO Last administered on 12/25/16 08:55; Admin Dose 20 MG; Start 12/19/16 at 09:00 Hydralazine HCl 10 mg 10 mg Q4H PRN IV SBP > 160 Last administered on 11:03; Admin Dose 10 MG; Start 12/19/16 at 03:30 Ceftriaxone Sodium (Rocephin) 50 ml @ 100 mls/hr Q24H IVPB Last administered on 12/25/16 12:18; Admin Dose 100 MLS/HR; Start 12/20/16 at 12:00 Magnesium Hydroxide (Milk Of Mag) 30 ml DAILY PRN PO CONSTIPATION Last administered on 12/22/16 20:36; Admin Dose 30 ML; Start 12/20/16 at 21:00 Labetalol HCl (Labetalol) 20 mg Q4 PRN IV sbp >170 Last administered on 04:06; Admin Dose 20 MG; Start 12/21/16 at 18:30 Hydralazine HCl (Apresoline) 50 mg TID PO Last administered on 12/25/16 12:18 ; Admin Dose 50 MG; Start 12/23/16 at 21:00 Sodium Chloride (Nacl) 1 gm TID PO Last administered on 12/25/16 12:18; Admin Dose 1 GM; Start 12/24/16 at 13:00 Simethicone (Mylicon) 80 mg Q6H PRN PO DISTENSION/GAS/BLOATING Last administered on 12/25/16t 10:40; Admin Dose 80 MG; Start 12/25/16 at 04:30 Metoprolol Tartrate (Lopressor) 50 mg BID PO ; Start 12/25/16 at 21:00 Nifedipine (Procardia Xl) 90 mg DAILY PO ; Start 12/26/16 at 09:00 FELICIA CABALLERO MD December 25, 2016 16:52
[2016-12-25] MEDS: MAGNESIUM HYDROXIDE 30ML CUP PO PRN (17:08)
[2016-12-25] MEDS: LABETALOL 200 MG TAB PO SCH (20:39)
[2016-12-25] MEDS ORDERED: METOPROLOL 50 MG TAB PO SCH (21:00)
[2016-12-26] MEDS: hydrALAzine 20 MG INJ IV PRN (01:30)
[2016-12-26 02:00] VITALS: BP 152/59; PULSE 68
[2016-12-26] MEDS: LORAZEPAM 2 MG INJ IV PRN (05:17)
[2016-12-26 06:26] LABS: CREATININE 1.25 mg/dl (0.44-1.00)
[2016-12-26 06:27] LABS: CALCIUM 8.9 mg/dl (8.4-10.2)
[2016-12-26 08:00] VITALS: BP 129/91; RESP 18
[2016-12-26] MEDS: FAMOTIDINE 20 MG TAB PO SCH (08:39)
[2016-12-26] MEDS ORDERED: NIFEdipine (XL) 90 MG TAB PO SCH (09:00)
--- NOTE | 2016-12-26 09:00 | CONS ---
Date/Time of Note Date/Time of Note DATE: 12/26/16 TIME: 08:59 Assessment/Plan Assessment/Plan Additional Assessment/Plan 1. Severe Hyponatremia 2. Hypertensive Urgency 3. Generalized weakness 4. CKD Stage III 5. Anemia, likely 2/2 chronic disease and CKD As patient is asymptomatic no acute indication for Hypertonic saline Na continues to improve, 131 BP better controlled Cont labetalol, Nifedipine and Hydralazine DC Planning Outpt follow with Renal, Office next week, information given to patient Thank you for the opportunity to participate in the care of Ms Raza Further recommendations to follow once studies reviewed. Consultation Date/Type/Reason Admit Date/Time December 19, 2016 at 03:32 Initial Consult Date 12/19/16 Type of Consultation: Renal Referring Provider: BRITTNI ESCOTO 24 HR Interval Summary Free Text/Dictation No new complaints Exam/Review of Systems Vital Signs Vitals Vital Signs Date Time Temp Pulse Resp B/P Pulse Ox O2 Delivery O2 Flow Rate FiO2 12/26/16 08:00 98.8 79 18 129/91 96 12/25/16 04:00 Room Air Intake and Output 12/25/16 12/25/16 12/26/16 15:00 23:00 07:00 Intake Total 50 ml 1000 ml 50 ml Balance 50 ml 1000 ml 50 ml Exam Constitutional: No distress ENMT: mucosa pink and moist Neck: No jvd Respiratory: clear to auscultation Cardiovascular: regular rate and rhythm, No edema Gastrointestinal: non-tender, soft Neurological: SWIMMER II-XII intact, nl mental status, nl speech, nl strength, No lethargic Results Result Diagram: 12/25/16 1004 12/26/16 0515 Results 24 hrs Laboratory Tests Test 12/25/16 10:04 12/26/16 05:15 White Blood Count 8.4 Red Blood Count 3.16 L Hemoglobin 9.3 L Hematocrit 28.0 L Mean Corpuscular Volume 88.6 Mean Corpuscular Hemoglobin 29.4 Mean Corpuscular Hemoglobin Concent 33.2 Red Cell Distribution Width 12.6 Platelet Count 386 Mean Platelet Volume 9.4 Neutrophils % 78.8 H Lymphocytes % 9.7 L Monocytes % 8.1 Eosinophils % 2.1 Basophils % 0.7 Nucleated Red Blood Cells % 0.0 Neutrophils # 6.7 Lymphocytes # 0.8 Monocytes # 0.7 Eosinophils # 0.2 Basophils # 0.1 Nucleated Red Blood Cells # 0.0 Sodium Level 130 L 131 L Potassium Level 4.4 4.0 Chloride Level 99 99 Carbon Dioxide Level 20 L 19 L Anion Gap 15 17 H Blood Urea Nitrogen 28 H 26 H Creatinine 1.36 H 1.25 H Glucose Level 172 99 # Calcium Level 9.1 8.9 Medications Medications Current Medications Ondansetron HCl (Zofran Inj) 4 mg Q6H PRN IV NAUSEA AND/OR VOMITING Last administered on 12/22/16 12:09; Admin Dose 4 MG; Start 12/19/16 at 03:30 Acetaminophen (Tylenol Liquid) 650 mg Q6H PRN PO PAIN LEVEL 1-3 OR FEVER Last administered on 12/23/16 06:37; Admin Dose 650 MG; Start 12/19/16 at 03:30 Lorazepam (Ativan) 1 mg Q2H PRN IV ANXIETY Last administered on 12/26/16 05:17 ; Admin Dose 1 MG; Start 12/19/16 at 03:30 Famotidine (Pepcid) 20 mg DAILY PO Last administered on 12/26/16 08:39; Admin Dose 20 MG; Start 12/19/16 at 09:00 Hydralazine HCl 10 mg 10 mg Q4H PRN IV SBP > 160 Last administered on 01:30; Admin Dose 10 MG; Start 12/19/16 at 03:30 Ceftriaxone Sodium (Rocephin) 50 ml @ 100 mls/hr Q24H IVPB Last administered on 12/25/16 12:18; Admin Dose 100 MLS/HR; Start 12/20/16 at 12:00 Magnesium Hydroxide (Milk Of Mag) 30 ml DAILY PRN PO CONSTIPATION Last administered on 12/25/16 17:08; Admin Dose 30 ML; Start 12/20/16 at 21:00 Labetalol HCl (Labetalol) 20 mg Q4 PRN IV sbp >170 Last administered on 04:06; Admin Dose 20 MG; Start 12/21/16 at 18:30 Hydralazine HCl (Apresoline) 50 mg TID PO Last administered on 12/26/16 08:39 ; Admin Dose 50 MG; Start 12/23/16 at 21:00 Sodium Chloride (Nacl) 1 gm TID PO Last administered on 12/25/16 20:38; Admin Dose 1 GM; Start 12/24/16 at 13:00 Simethicone (Mylicon) 80 mg Q6H PRN PO DISTENSION/GAS/BLOATING Last administered on 12/25/16 17:08; Admin Dose 80 MG; Start 12/25/16 at 04:30 Nifedipine (Procardia Xl) 90 mg DAILY PO ; Start 12/26/16 at 09:00 Labetalol HCl (Normodyne) 200 mg BID PO Last administered on 12/25/16 20:39; Admin Dose 200 MG; Start 12/25/16 at 21:00 FELICIA CABALLERO MD December 26, 2016 09:00
[2016-12-26] MEDS: SODIUM CHLORIDE 1 GM TAB PO SCH ×2 (11:23→13:00)
[2016-12-26 11:24] VITALS: BP 230/69
[2016-12-26] MEDS: LABETALOL 200 MG TAB PO SCH (11:24)
[2016-12-26] MEDS: CEFTRIAXONE 1 GM/50 ML (PMX) 50 ML IVPB SCH (12:00)
[2016-12-26 12:35] VITALS: BP 195/88
[2016-12-26 13:47] VITALS: BP 161/79
[2016-12-26] MEDS ORDERED: LABE200T25 PO (13:55)
[2016-12-26] MEDS ORDERED: HYDR12.58 PO (13:55)
[2016-12-26] MEDS ORDERED: HYDR-3672 PO (13:55)
[2016-12-26] MEDS ORDERED: NIFEdipine (XL) PO (13:55)
--- NOTE | 2016-12-26 14:00 | DS ---
Date/Time of Note Date/Time of Note DATE: 12/26/16 TIME: 13:56 Discharge Summary Admission/Discharge Info Admit Date/Time December 19, 2016 at 03:32 Discharge Date/Time Final Diagnosis 1. Hyponatremia, improved 2. Hypertension, better controlled, follow up with PCP 3. Generalized weakness, again secondary to #1, improved 4. History of chronic kidney disease. Again avoid nephrotoxins, monitor. Follow up with PCP 5. Normocytic anemia CKD related, stable Patient Condition: Stable Hx of Present Illness This is a 56 yo male with history of HTN and CKD who presented to ER c/o generalized weakness and shortness of breath for past few days. Denied focal weakness/numbness, headache, CP, fever/chills, nausea/vomiting or diarrhea. In ER, her BP was 255/119 with HR of 93. Lab showed a Na of 114, cl 75, BUN 28 and cr 1.43. . Hospital Course for hypertension, antihypertensives has been adjusted with better blood pressure control. She will follow up with PCP for medication adjustment. For hyponatremia, patient ios treated with free water restriction. Last Na is 132 on 12/26/2016. Home Meds Active Scripts Hydrochlorothiazide* (Hydrochlorothiazide*) 12.5 Mg Tablet, 12.5 MG PO DAILY, # 30 TAB Prov:ALON FLORES MD 12/26/16 [NIFEdipine (XL)] 90 MG TABSR No Conflict Check, 90 MG PO DAILY for 30 Days Prov:ALON FLORES MD 12/26/16 Labetalol Hcl* (Labetalol Hcl*) 200 Mg Tablet, 200 MG PO BID for 30 Days, TAB Prov:ALON FLORES MD 12/26/16 Hydralazine Hcl* (Apresoline*) 50 Mg Tab, 50 MG PO TID for 30 Days, TAB Prov:ALON FLORES MD 12/26/16 Discontinued Reported Medications Lisinopril/Hydrochlorothiazide (Lisinopril-Hctz 20-25 mg Tab) 1 Each Tablet, 1 EACH PO DAILY, TAB 12/18/16 Follow-up Plan PCP in one week Primary Care Provider Care Physician No Primary Pending Labs Laboratory Tests Test 12/26/16 05:15 Sodium Level 131mmol/L (135-144) Potassium Level 4.0mmol/L (3.5-5.1) Chloride Level 99mmol/L (97-110) Carbon Dioxide Level 19mmol/L (21-31) Anion Gap 17 (8-16) Blood Urea Nitrogen 26mg/dl (7-20) Creatinine 1.25mg/dl (0.44-1.00) Glucose Level 99mg/dl (70-220) Calcium Level 8.9mg/dl (8.4-10.2) ALON FLORES MD December 26, 2016 14:00
[2016-12-26 15:13] VITALS: BP 136/62
== END 2016-12-26 15:35 | disposition home or self-care (01) | DRG 305 ==
LOC: E/R 20:12 → ICU 12-19 03:32 → MS4 12-20 13:55 → PP2 12-26 00:45
PROVIDERS: ADMIT Internal Medicine; ATTEND Internal Medicine
PROC: 30233N1 Transfusion of Nonautologous Red Blood Cells into Peripheral Vein, Percutaneous Approach (ICD-10-PCS; principal; 2016-12-19)
DX: I16.0 Hypertensive urgency (principal); E87.1 Hypo-osmolality and hyponatremia; N18.3 Chronic kidney disease, stage 3 (moderate); I12.9 Hypertensive chronic kidney disease with stage 1 through stage 4 chronic kidney disease, or unspecified chronic kidney disease; R53.1 Weakness; D63.1 Anemia in chronic kidney disease
CPT/HCPCS: 36430; 71010; 80048; 80053; 81001; 81003; 82270; 82436; 82533; 82550; 82553; 82728; 83540; 83735; 83880; 83935; 84100; 84133; 84155; 84295; 84300; 84443; 84484; 85014; 85018; 85025; 85610; 85730; 86644; 86850; 86900; 86901; 86920; 87081; 93005; 96374; J1940; J0360; J0696; J2060; J2405; J3475; J7030; J7040; P9016

== ENCOUNTER 2017-09-07 15:47 | Inpatient (IN) | END 2017-09-08 14:20 | disposition home or self-care (01) | DRG 305 ==

== ENCOUNTER 2017-11-09 18:42 | Inpatient (IN) | END 2017-11-12 17:51 | disposition home or self-care (01) | DRG 641 ==